=== PATIENT | male | born 1965 | race Caucasian/White ===

== ENCOUNTER 2020-07-12 12:29 | Outpatient (REF) | payer OTHER, SELFPAY ==
[2020-07-12 14:36] LABS: Estimated Average Glucose 97 mg/dL
[2020-07-12 15:06] LABS: Alanine Aminotransferase 15 U/L (0-40); Albumin Level 4.5 g/dL (3.5-5.0); Alkaline Phosphatase 61 U/L (39-117); Anion Gap 15 (12-20); Aspartate Amino Transferase 15 U/L (5-37); Bilirubin Total 1.2 mg/dL (0.0-1.0); Blood Urea Nitrogen 20 mg/dL (9-16); Calcium 8.8 mg/dL (8.4-10.2); Carbon Dioxide 23 mmol/L (22-29); Chloride 101 mmol/L (96-108); Cholesterol 320 mg/dL; Estimated Glomerular Filt Rate > 60; Glucose Fasting 82 mg/dL (60-99); HDL Cholesterol 65 mg/dL; LDL Cholesterol Calculated 245 mg/dl; Potassium 4.2 mmol/l (3.3-5.1); Sodium 135 mmol/L (135-145); Total Protein 7.1 g/dL (6.5-8.0); Triglycerides 54 mg/dL
[2020-07-12 15:15] LABS: Prostate Specific Antigen Scr 0.73 ng/mL (<0.05-4.0); Thyroid Stimulating Hormone 0.73 uIU/mL (0.32-4.0)
== END 2020-07-12 12:30 | disposition home or self-care (01) ==
LOC: HO.10HDL 12:29
PROVIDERS: Visit Provider Physician Assistant
DX: I10 Essential (primary) hypertension (principal); Z12.5 Encounter for screening for malignant neoplasm of prostate; Z79.899 Other long term (current) drug therapy
CPT/HCPCS: 36415; 80053; 80061; 83036; 84153; 84443

== ENCOUNTER 2020-11-22 11:24 | Outpatient (REF) | payer OTHER, SELFPAY ==
[2020-11-22 13:54] LABS: Cholesterol 251 mg/dL; HDL Cholesterol 70 mg/dL; LDL Cholesterol Calculated 173 mg/dl; Triglycerides 43 mg/dL
== END 2020-11-22 11:25 | disposition home or self-care (01) ==
LOC: HO.10HDL 11:24
PROVIDERS: Visit Provider Physician Assistant
DX: E78.2 Mixed hyperlipidemia (principal)
CPT/HCPCS: 36415; 80061

== ENCOUNTER 2021-05-23 09:04 | Outpatient (REF) | payer OTHER, SELFPAY ==
[2021-05-23 10:23] LABS: Hematocrit 39.8 % (42.0-52.0); Hemoglobin 13.3 g/dl (14.0-18.0); Mean Corpuscular HGB Conc 33.4 g/dl (31.0-36.0); Mean Corpuscular Hemoglobin 29.8 pg (27.0-33.0); Platelet Count 169 X10*3/uL (160-400); Red Blood Count 4.47 X10*6/uL (4.60-5.80); Red Cell Distribution Width 13.2 % (11.0-16.0)
[2021-05-23 10:49] LABS: Alanine Aminotransferase 15 U/L (0-40); Albumin Level 4.1 g/dL (3.5-5.0); Alkaline Phosphatase 66 U/L (39-117); Anion Gap 10 (12-20); Aspartate Amino Transferase 14 U/L (5-37); Bilirubin Total 1.1 mg/dL (0.0-1.0); Blood Urea Nitrogen 23 mg/dL (9-16); Calcium 9.2 mg/dL (8.4-10.2); Carbon Dioxide 25 mmol/L (22-29); Chloride 105 mmol/L (96-108); Cholesterol 265 mg/dL; Estimated Glomerular Filt Rate > 60; Glucose Fasting 85 mg/dL (60-99); HDL Cholesterol 64 mg/dL; LDL Cholesterol Calculated 191 mg/dl; Potassium 4.2 mmol/L (3.3-5.1); Sodium 136 mmol/L (135-145); Total Protein 6.4 g/dL (6.5-8.0); Triglycerides 52 mg/dL
[2021-05-23 11:12] LABS: Prostate Specific Antigen Scr 0.78 ng/mL (<0.05-4.0)
== END 2021-05-23 09:05 | disposition home or self-care (01) ==
LOC: HO.10HDL 09:04
PROVIDERS: Visit Provider Physician Assistant
DX: Z12.5 Encounter for screening for malignant neoplasm of prostate (principal); E78.2 Mixed hyperlipidemia; I10 Essential (primary) hypertension
CPT/HCPCS: 36415; 80053; 80061; 84153; 85027

== ENCOUNTER 2021-11-22 11:23 | Outpatient (REF) | payer OTHER, SELFPAY ==
[2021-11-22 13:07] LABS: Hematocrit 42.8 % (42.0-52.0); Hemoglobin 14.1 g/dl (14.0-18.0); Mean Corpuscular HGB Conc 32.9 g/dl (31.0-36.0); Mean Corpuscular Hemoglobin 28.5 pg (27.0-33.0); Mean Corpuscular Volume 86.6 fL (80.0-98.0); Mean Platelet Volume 9.1 fL (9.4-12.4); Platelet Count 152 X10*3/uL (160-400); Red Blood Count 4.94 X10*6/uL (4.60-5.80); Red Cell Distribution Width 14.5 % (11.0-16.0); White Blood Count 4.3 X10*3/uL (4.8-10.8)
[2021-11-22 13:18] LABS: Estimated Average Glucose 105 mg/dL; Hemoglobin A1c % 5.3 %
[2021-11-22 13:25] LABS: Alanine Aminotransferase 18 U/L (0-40); Albumin Level 4.2 g/dL (3.5-5.0); Alkaline Phosphatase 81 U/L (39-117); Anion Gap 12 (12-20); Aspartate Amino Transferase 17 U/L (5-37); Bilirubin Total 0.7 mg/dL (0.0-1.0); Blood Urea Nitrogen 20 mg/dL (9-16); Carbon Dioxide 25 mmol/L (22-29); Chloride 102 mmol/L (96-108); Cholesterol 268 mg/dL; Estimated Glomerular Filt Rate > 60; Glucose Fasting 94 mg/dL (60-99); HDL Cholesterol 61 mg/dL; LDL Cholesterol Calculated 193 mg/dl; Potassium 4.7 mmol/L (3.3-5.1); Sodium 134 mmol/L (135-145); Total Protein 7.1 g/dL (6.5-8.0); Triglycerides 71 mg/dL
[2021-11-22 13:46] LABS: Prostate Specific Antigen Scr 1.18 ng/mL (<0.05-4.0); TSH reflex Free T4 2.37 uIU/mL (0.32-4.0)
[2021-11-22 14:54] LABS: Creatinine Urine 96.58 mg/dL; Microalbum/Creatinine Ratio Ur 7.2 ug/mg cr
== END 2021-11-22 11:24 | disposition home or self-care (01) ==
LOC: HO.10HDL 11:23
PROVIDERS: Visit Provider Physician Assistant
DX: I10 Essential (primary) hypertension (principal); E78.2 Mixed hyperlipidemia; Z12.5 Encounter for screening for malignant neoplasm of prostate
CPT/HCPCS: 36415; 80053; 80061; 82043; 83036; 84153; 84443; 85027

== ENCOUNTER 2022-08-11 14:56 | Outpatient (REF) | payer OTHER, SELFPAY ==
[2022-08-11 15:23] LABS: MANUAL DIFF FLAG NO
[2022-08-11 15:25] LABS: Basophils Absolute Auto 0.1 X10*3/uL (0.0-0.2); Basophils Percent Auto 0.6 % (0-2); Eosinophils Absolute Auto 0.2 X10*3/uL (0.0-0.4); Eosinophils Percent Auto 1.5 % (0-4); Hematocrit 40.5 % (42.0-52.0); Hemoglobin 13.6 g/dl (14.0-18.0); Imm Gran Abs Auto 0.41 X10*3/uL (0.00-0.03); Imm Gran Pct Auto 4.2 % (0.0-0.4); Lymphocytes Absolute Auto 1.5 X10*3/uL (1.2-4.9); Lymphocytes Percent Auto 15.5 % (20-40); Mean Corpuscular HGB Conc 33.6 g/dl (31.0-36.0); Mean Corpuscular Hemoglobin 28.8 pg (27.0-33.0); Mean Corpuscular Volume 85.8 fL (80.0-98.0); Mean Platelet Volume 8.4 fL (9.4-12.4); Monocytes Absolute Auto 0.9 X10*3/uL (0.1-1.2); Monocytes Percent Auto 9.2 % (2-11); Neutrophils Absolute Auto 6.8 x10*3/uL (2.0-8.3); Platelet Count 238 X10*3/uL (160-400); Red Blood Count 4.72 X10*6/uL (4.60-5.80); Red Cell Distribution Width 13.9 % (11.0-16.0); White Blood Count 9.9 X10*3/uL (4.8-10.8)
[2022-08-11 15:54] LABS: Alanine Aminotransferase 23 U/L (0-40); Albumin Level 3.8 g/dL (3.5-5.0); Alkaline Phosphatase 72 U/L (39-117); Anion Gap 14 (12-20); Aspartate Amino Transferase 18 U/L (5-37); Bilirubin Total 0.9 mg/dL (0.0-1.0); Blood Urea Nitrogen 25 mg/dL (9-16); Calcium 8.7 mg/dL (8.4-10.2); Carbon Dioxide 23 mmol/L (22-29); Chloride 107 mmol/L (96-108); Estimated Glomerular Filt Rate > 60; Glucose Random 108 mg/dL (60-115); Lipase 17 U/L (8-78); Potassium 4.4 mmol/L (3.3-5.1); Sodium 140 mmol/L (135-145); Total Protein 6.1 g/dL (6.5-8.0)
== END 2022-08-11 14:57 | disposition home or self-care (01) ==
LOC: HO.HMGCLDS 14:56
PROVIDERS: PCP Physician Assistant; Visit Provider Physician Assistant Medical
DX: R19.7 Diarrhea, unspecified (principal)
CPT/HCPCS: 36415; 80053; 83690; 85025

== ENCOUNTER 2022-10-15 11:40 | Outpatient (REF) | payer OTHER, SELFPAY ==
[2022-10-15 14:35] LABS: Hematocrit 44.6 % (42.0-52.0); Hemoglobin 14.7 g/dl (14.0-18.0); Mean Corpuscular Hemoglobin 29.1 pg (27.0-33.0); Mean Corpuscular Volume 88.1 fL (80.0-98.0); Mean Platelet Volume 9.1 fL (9.4-12.4); Platelet Count 224 X10*3/uL (160-400); Red Blood Count 5.06 X10*6/uL (4.60-5.80); White Blood Count 6.4 X10*3/uL (4.8-10.8)
[2022-10-15 14:39] LABS: Alanine Aminotransferase 19 U/L (0-40); Albumin Level 4.2 g/dL (3.5-5.0); Alkaline Phosphatase 69 U/L (39-117); Anion Gap 10 (12-20); Aspartate Amino Transferase 15 U/L (5-37); Bilirubin Total 0.6 mg/dL (0.0-1.0); Blood Urea Nitrogen 22 mg/dL (9-16); Calcium 8.8 mg/dL (8.4-10.2); Carbon Dioxide 25 mmol/L (22-29); Chloride 109 mmol/L (96-108); Cholesterol 285 mg/dL; Estimated Glomerular Filt Rate > 60; Glucose Fasting 90 mg/dL (60-99); HDL Cholesterol 66 mg/dL; LDL Cholesterol Calculated 210 mg/dl; Potassium 4.4 mmol/L (3.3-5.1); Sodium 140 mmol/L (135-145); Total Protein 6.4 g/dL (6.5-8.0); Triglycerides 47 mg/dL
== END 2022-10-15 11:41 | disposition home or self-care (01) ==
LOC: HO.10HDL 11:40
PROVIDERS: Visit Provider Physician Assistant
DX: I10 Essential (primary) hypertension (principal); E78.2 Mixed hyperlipidemia
CPT/HCPCS: 36415; 80053; 80061; 85027

== ENCOUNTER 2023-04-15 11:58 | Outpatient (REF) | payer OTHER, SELFPAY ==
[2023-04-15 13:15] LABS: Hematocrit 40.9 % (42.0-52.0); Hemoglobin 14.1 g/dl (14.0-18.0); Mean Corpuscular HGB Conc 34.5 g/dl (31.0-36.0); Mean Corpuscular Hemoglobin 30.1 pg (27.0-33.0); Mean Corpuscular Volume 87.4 fL (80.0-98.0); Mean Platelet Volume 8.8 fL (9.4-12.4); Platelet Count 200 X10*3/uL (160-400); Red Blood Count 4.68 X10*6/uL (4.60-5.80); Red Cell Distribution Width 13.4 % (11.0-16.0)
[2023-04-15 13:30] LABS: Alanine Aminotransferase 20 U/L (0-40); Albumin Level 4.2 g/dL (3.5-5.0); Alkaline Phosphatase 75 U/L (39-117); Anion Gap 14 (12-20); Aspartate Amino Transferase 19 U/L (5-37); Bilirubin Total 0.9 mg/dL (0.0-1.0); Blood Urea Nitrogen 7 mg/dL (9-16); Calcium 9.4 mg/dL (8.4-10.2); Carbon Dioxide 25 mmol/L (22-29); Chloride 102 mmol/L (96-108); Cholesterol 248 mg/dL (<200); Estimated Glomerular Filt Rate > 60; Glucose Fasting 90 mg/dL (60-99); HDL Cholesterol 56 mg/dL (>40); LDL Cholesterol Calculated 179 mg/dL (<100); Potassium 4.6 mmol/L (3.3-5.1); Sodium 136 mmol/L (135-145); Total Protein 6.9 g/dL (6.5-8.0); Triglycerides 67 mg/dL (<150)
[2023-04-15 13:52] LABS: Prostate Specific Antigen Scr 1.14 ng/mL (<0.05-4.0)
== END 2023-04-15 11:59 | disposition home or self-care (01) ==
LOC: HO.10HDL 11:58
PROVIDERS: Visit Provider Physician Assistant
DX: Z12.5 Encounter for screening for malignant neoplasm of prostate (principal); I10 Essential (primary) hypertension; E78.2 Mixed hyperlipidemia
CPT/HCPCS: 36415; 80053; 80061; 84153; 85027

== ENCOUNTER 2023-04-17 10:08 | Outpatient (AMB) | payer OTHER, SELFPAY ==
[2023-04-17 10:10] VITALS: BP 160/104; PULSE 80; O2SAT 99; BMI 24.8
--- NOTE | 2023-04-17 10:10 | A.OFFPC_ITS ---
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 Accompanied by: Self / Same As Patient Allergies bee stings Allergy (Unknown, Uncoded 04/17/23 10:19) Unknown Medication List - Last Reconciled 04/17/23 by Jair Hammond PA-C bupropion HCl (Wellbutrin XL) 150 mg PO QAM diphenoxylate-atropine 2.5-0.025 mg (Lomotil) 1 tab PO TID PRN ibuprofen 800 mg PO Q8H 7 days lisinopril 5 mg (1/2 x 10 mg) PO DAILY Tobacco use date assessed: 10/16/22 Dental Screening Dental Screen Date: 04/17/23 Did you have a dental visit in the last 12 months?: No Did you have a dental problem in the last 6 months where you did not have access to dental care?: No Was dental information given to patient?: Patient has dentist HPI f/u HLD 2 HPI0 Details Tom is a 57-year-old male? here today for follow-up visit . Patient has past medical history of hypertension, anxiety, HLD. Concerns--> report having a small pain in his lower back when he moves over the last 4 months. He is interested in getting x-ray of his back ?? Hyperlipidemia:? Most recent lipid panel has improved from previous though still elevated. He does report having family members with elevated cholesterol. PLAN :? Advised on starting low-dose statin though patient declines, ?Will continue to monitor lipid panel continues to be elevated with continue lifestyle management. ? . ? .. ? HTN:? Blood pressure elevated today in office. Reports that home blood pressures have been stable. ? does not regularly monitor his blood pressure,? denies any headaches chest pain, shortness of breath, dizziness. Blood pressure today acceptable. ? .. ? Anxiety:? Continues with the use of Wellbutrin for his anxiety. Continues to follow with psychiatrist Laboratory Tests 10/15/22 10/15/22 04/15/23 11:42 11:42 12:05 RBC 4.68 Creatinine 0.76 Cholesterol 285 248 H LDL Cholesterol, C alc 210 PSA Screen 04/15/23 04/15/23 12:05 12:05 RBC Creatinine Cholesterol LDL Cholesterol, C alc 179 H PSA Screen 1.14 PFSH Surgical History History of vascular surgery History of nasal surgery Family History Father Hypertension Hyperlipidemia Colon cancer Mother Hypertension Hyperlipidemia Diabetes Maternal Grandmother CAD (coronary artery disease) Social History Housing: House Alcohol intake: former Patient Tobacco Use Status: Former Tobacco user e-Cigarette/Vaping Use: Never Used Second Hand Smoke Exposure: No service: No Current occupational status: employed 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 Tom Osorio, Farida Estes, Chris Bain and colleagues, with an educational cesar from [employer] Review of Systems Const Denies headache(s) Eyes Denies loss of vision ENT Denies vertigo, Denies dizziness, Denies headache(s) and Denies sore throat Card Denies chest pain, Denies leg edema and Denies lightheadedness Resp Denies cough, Denies hemoptysis and Denies wheezing GI Denies abdominal pain, Denies melena, Denies constipation, Denies diarrhea and Denies vomiting Denies dysuria, Denies urinary frequency and Denies urinary urgency Musc Denies arthralgias, Denies joint swelling, Denies numbness and Denies tingling Neuro Denies Abnormal speech present, Denies behavioral changes, Denies vertigo, Denies dizziness, Denies headache(s), Denies loss of vision, Denies memory loss, Denies numbness and Denies tingling Psych Denies anxiety, Denies behavioral changes, Denies depression, Denies memory loss and Denies panic attacks Castillo/Lymph Denies easy bleeding and Denies easy bruising Aller/Immun Denies wheezing Physical exam (Primary Care) Vital Signs: Last Vital Signs Pulse 80 04/17/23 10:10 BP 160/104 H 04/17/23 10:10 Pulse Ox 99 04/17/23 10:10 Oxygen Delivery Method Room Air 04/17/23 10:10 BMI result Body Mass Index 24.8 Tobacco/Smoking Status: Tobacco use Status Tobacco use date assessed 10/16/22 04/17/23 10:13 Patient Tobacco Use Status Former Tobacco user 04/17/23 10:13 e-Cigarette/Vaping Use Never Used 04/17/23 10:13 Thrive Assessment: Date of Thrive Assessment Date Thrive assessed 10/16/22 04/17/23 10:13 Const General: healthy appearing, no acute distress, alert and awake Nutritional Appearance: well nourished Orientation/consciousness: oriented to person, oriented to place and oriented to time HENMT Ears: TM's normal bilaterally General nose exam: Normal nasal mucous membranes and turbinates present Eyes Conjunctivae: conjunctivae normal Sclerae: sclerae normal Pupils: Equal, round and reactive pupils present Eyes/upper lids images: 2 1. NOTED STYE OVER RIGHT LOWER EYELID Neck Neck: Yes no lymphadenopathy and Yes no JVD Thyroid: Thyroid normal Carotids: no bruits Resp Effort & Inspection: normal respiratory effort and not tachypneic Auscultation: no crackles, no rales, no rhonchi and no wheezes Cardio Rate: regular rate Rhythm: regular rhythm Heart sounds: no murmurs and normal S1 and S2 GI Palpation (GI): Soft to palpation, nontender, no hepatomegaly and no splenomegaly Auscultation: normal bowel sounds Skin General skin exam: no rashes or lesions noted and dry skin Neuro General: oriented to person, oriented to place and oriented to time Cranial nerves: Yes Equal, round and reactive pupils present Speech: No Abnormal speech present Gait exam (Neuro): Normal gait present Motor exam (neuro): no tremor noted Extrem Right upper extremity: full ROM Left upper extremity: full ROM Right lower extremity: full ROM; no edema Left lower extremity: full ROM; no edema Psych Mental Status: mental status grossly normal Speech and movement: Normal speech and movement present Affect: normal affect Attitude: cooperative Thought process: Normal thought process present Assessment and Plan Assessment & Plan (1) HLD (hyperlipidemia): Code(s): E78.5 - Hyperlipidemia, unspecified Qualifiers: Hyperlipidemia type: mixed hyperlipidemia Qualified Code(s): E78.2 - Mixed hyperlipidemia Plan: Patient's fasting lipid panel remains showing elevated total cholesterol and LDL though improved from previous. Has been making lifestyle changes in his diet. He is still not interested in starting cholesterol medication at this time. Will continue to follow fasting lipid panel (2) HTN (hypertension): Code(s): I10 - Essential (primary) hypertension Qualifiers: Hypertension type: essential hypertension Qualified Code(s): I10 - Essential (primary) hypertension Plan: Patient's blood pressure elevated today in office.. Will continue current dose of lisinopril 5mg with goal blood pressure to be below 140/90. He reports that home blood pressures have been stable. He will continue to monitor blood pressures and if remains elevated above 140/90 will consider increasing his dose of lisinopril. (3) KYAW (generalized anxiety disorder): Code(s): F41.1 - Generalized anxiety disorder Plan: Patient reports his anxiety is well controlled with current dose of Wellbutrin. He does speak with a mental health therapist (4) Low back pain: Code(s): M54.50 - Low back pain, unspecified Qualifiers: Back pain laterality: bilateral Chronicity: chronic Sciatica presence: without sciatica Qualified Code(s): M54.50 - Low back pain, unspecified; G89.29 - Other chronic pain Plan: Reports having intermittent lower back pain. He would like an x-ray to evaluate. Will likely benefit from physical therapy though patient is still considering. (5) Hordeolum of lower eyelid: Code(s): H00.019 - Hordeolum externum unspecified eye, unspecified eyelid Plan: Noticed I over right lower eyelid.' Will supply with erythromycin eye oint. Orders: Orders 2 Lipid Panel 04/17/23 E78.2 - Mixed hyperlipidemia XR lumbar spine 2-3V 04/17/23 G89.29 - Other chronic pain, M54.50 - Low back pain, unspecified Comprehensive [place]. Panel Fast 04/17/23 E78.2 - Mixed hyperlipidemia Microalbumin, Random (w Creat) 04/17/23 I10 - Essential (primary) hypertension Medications: New 2 erythromycin 1 appl ophthalmic-Right DAILY 14 days 3.5 grams 0RF H00.019 - Hordeolum externum unspecified eye, unspecified eyelid Coding Level of Care Code Est Pt Level 4 (94290) Diagnoses Mixed hyperlipidemia E78.2 Hyperlipidemia type: mixed hyperlipidemia Essential hypertension I10 Hypertension type: essential hypertension KYAW (generalized anxiety disorder) F41.1 Chronic bilateral low back pain without sciatica M54.50; G89.29 Back pain laterality: bilateral Chronicity: chronic Sciatica presence: without sciatica Hordeolum of lower eyelid H00.019
== END 2023-04-17 10:45 | disposition home or self-care (01) ==
PROVIDERS: Visit Provider Physician Assistant
DX: E78.2 Mixed hyperlipidemia (principal); I10 Essential (primary) hypertension; F41.1 Generalized anxiety disorder; M54.50 Low back pain, unspecified; G89.29 Other chronic pain; H00.019 Hordeolum externum unspecified eye, unspecified eyelid
CPT/HCPCS: 99214

== ENCOUNTER 2023-12-23 11:34 | Outpatient (REF) | payer OTHER, SELFPAY ==
[2023-12-23 13:03] LABS: Microalbumin Urine < 5.0 mg/L
[2023-12-23 13:05] LABS: Alanine Aminotransferase 13 U/L (0-40); Albumin Level 4.2 g/dL (3.5-5.0); Alkaline Phosphatase 58 U/L (39-117); Anion Gap 12 (12-20); Aspartate Amino Transferase 14 U/L (5-37); Bilirubin Total 0.7 mg/dL (0.0-1.0); Blood Urea Nitrogen 13 mg/dL (9-16); Calcium 9.1 mg/dL (8.4-10.2); Carbon Dioxide 25 mmol/L (22-29); Chloride 102 mmol/L (96-108); Cholesterol 199 mg/dL (<200); Estimated Glomerular Filt Rate > 60; Glucose Fasting 92 mg/dL (60-99); HDL Cholesterol 52 mg/dL (>40); LDL Cholesterol Calculated 134 mg/dL (<100); Sodium 135 mmol/L (135-145); Total Protein 6.9 g/dL (6.5-8.0); Triglycerides 65 mg/dL (<150)
== END 2023-12-23 11:35 | disposition home or self-care (01) ==
LOC: HO.LAB 11:34
PROVIDERS: PCP Physician Assistant; Visit Provider Physician Assistant
DX: E78.2 Mixed hyperlipidemia (principal); I10 Essential (primary) hypertension
CPT/HCPCS: 36415; 80053; 80061; 82043; 82570

== ENCOUNTER 2023-12-23 14:45 | Outpatient (AMB) | payer OTHER, SELFPAY ==
[2023-12-23 15:12] VITALS: BP 144/100; PULSE 86; O2SAT 97; BMI 24.9
--- NOTE | 2023-12-23 15:12 | MHC.PC.OV ---
Vital Signs 12/23/23 15:12 Height 5 ft 8 in Weight 164 lb BMI 24.9 BP 144/100 H Blood Pressure Location Lt brachial Position Sitting Pulse 86 Pulse Source Pulse Oximeter Pulse Oximetry (%) 97 Oxygen Delivery Method Room Air Intake Visit Reasons: annual physical Intake Note: Patient is here today for a physical. 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 here today for follow-up visit . Patient has past medical history of hypertension, anxiety, HLD. ?? Hyperlipidemia:? Most recent lipid panel has significantly improved He does report having family members with elevated cholesterol. Plan: Continue with lifestyle and dietary modifications ? . ? .. ? HTN:? Blood pressure elevated today in office. Reports that home blood pressures have been stable 120s to 130 systolic. ?He denies any headaches chest pain, shortness of breath, dizziness. Blood pressure today acceptable. ? .. ? Anxiety:? Continues with the use of Wellbutrin for his anxiety. Continues to follow with psychiatrist Colonoscopy:? Done in 2016 needs repeat 5 years ( 2021)- does have family history of colon cancer needed repeat colonoscopy vaccine: UTD with COVID Vaccine and TDap, considering shingles Laboratory Tests 04/15/23 12/23/23 12:05 11:59 Cholesterol 248 H 199 LDL Cholesterol, C alc 179 H 134 H PFSH Surgical History History of vascular surgery History of nasal surgery Family History Father Hypertension Hyperlipidemia Colon cancer Mother Hypertension Hyperlipidemia Diabetes Maternal Grandmother CAD (coronary artery disease) Social History Housing: House Alcohol intake: former Patient Tobacco Use Status: Former Tobacco user e-Cigarette/Vaping Use: Never Used Second Hand Smoke Exposure: No service: No Current occupational status: employed 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 1. Little interest or pleasure in doing things: not at all 2. Feeling down, depressed, or hopeless: not at all 3. Trouble falling or staying asleep, or sleeping too much: not at all 4. Feeling tired or having little energy: not at all 5. Poor appetite or overeating: not at all 6. Feeling bad about yourself - or that you are a failure or have let yourself or your family down: not at all 7. Trouble concentrating on things, such as reading the newspaper or watching television: not at all 8. Moving or speaking so slowly that other people could have noticed. Or the opposite - being so fidgety or restless that you have been moving around a lot more than usual: not at all 9. Thoughts that you would be better off or of hurting yourself in some way: not at all Total score: 0 Depression Screening Interpretation: Negative Depression Screening Done: Yes 09960 - PHQ-9 Billing: Yes Source: Developed by Drs. Tom Osorio, Farida Estes, Chris Bain and colleagues, with an educational cesar from [employer]. Thrive Questionnaire Date Thrive assessed: 10/16/22 KYAW-7 AMB Questionnaire KYAW-7 Date KYAW - 7 assessed: 10/16/22 Feeling nervous, anxious, or on edge: 0 = Not at all Not being able to stop or control worryin = Not at all Worrying too much about different things: 0 = Not at all Trouble relaxin = Not at all Being so restless that it is hard to sit still: 0 = Not at all Becoming easily annoyed or irritable: 0 = Not at all Feeling afraid as if something awful might happen: 0 = Not at all Total KYAW-7 score (0-4 normal; 5-9 mild; 10-14 moderate; 15-21 severe): 0 Source: Developed by Drs. oTm Osorio, Farida Estes, Chris Bain and colleagues, with an educational cesar from [employer]. KYAW-7 Assessment Billing KYAW-7 Assessment Tool: KYAW-7 Assessment 82116 Review of Systems Const Denies body aches, Denies chills, Denies excessive sweating, Denies fatigue, Denies fever(s) and Denies headache(s) Eyes Denies blurry vision ENT Denies dysphagia, Denies vertigo, Denies dizziness, Denies headache(s), Denies hearing loss and Denies tinnitus Card Denies chest pain, Denies chest pain with activity, Denies syncope, Denies irregular heart rhythm and Denies dyspnea Resp Denies chest congestion, Denies cough, Denies hemoptysis, Denies dyspnea and Denies wheezing GI Denies abdominal pain, Denies melena, Denies hematochezia, Denies coffee ground emesis, Denies dysphagia, Denies diarrhea, Denies nausea and Denies vomiting Denies difficulty urinating, Denies dysuria, Denies urinary frequency, Denies urinary hesitancy and Denies urinary urgency Musc Denies arthralgias, Denies limited range of motion, Denies muscle cramps and Denies muscle weakness Skin/Breast Denies rash and Denies skin ulcer Neuro Denies Abnormal speech present, Denies confusion, Denies vertigo, Denies dizziness, Denies syncope, Denies headache(s), Denies memory loss and Denies seizure-like activity Psych Denies anxiety, Denies confusion, Denies depression, Denies memory loss, Denies panic attacks and Denies paranoia Endo Denies excessive sweating, Denies fatigue, Denies flushing, Denies polydipsia and Denies polyuria Aller/Immun Denies wheezing Physical exam (Primary Care) Vital Signs: Last Vital Signs Pulse 86 12/23/23 15:12 BP 144/100 H 12/23/23 15:12 Pulse Ox 97 12/23/23 15:12 Oxygen Delivery Method Room Air 12/23/23 15:12 BMI result Body Mass Index 24.9 Tobacco/Smoking Status: Tobacco use Status Tobacco use date assessed 12/23/23 12/23/23 15:18 Patient Tobacco Use Status Former Tobacco user 12/23/23 15:18 e-Cigarette/Vaping Use Never Used 12/23/23 15:18 PHQ-9: PHQ-9 Score PHQ-9: Total score 0 12/23/23 15:57 Depression Screening Interpretation: Negative Thrive Assessment: Date of Thrive Assessment Date Thrive assessed 10/16/22 12/23/23 15:18 Const General: cooperative, comfortable, no acute distress, alert and awake; No confusion Orientation/consciousness: oriented to person, oriented to place, patient oriented x3 and No confusion HENMT Head: Yes normocephalic Ears: external ears normal and TM's normal bilaterally Face and sinus: No sinus tenderness Mouth: Normal oral and palatal mucosa present and tongue normal Teeth and gingiva: dentition normal and gingiva normal Throat: Yes posterior oropharynx normal, Yes tonsils normal and Yes uvula midline Eyes Conjunctivae: conjunctivae normal Sclerae: sclerae normal Pupils: Equal, round and reactive pupils present EOM: EOMs intact bilaterally Direct Ophthalmoscopy: No no photophobia Neck Neck: Yes no lymphadenopathy, No tender and Yes no JVD Thyroid: Thyroid normal Carotids: no bruits Chest Chest palpation & inspection: no tenderness Resp Effort & Inspection: normal respiratory effort, no audible wheezes, not labored and no stridor Auscultation: no crackles, no rales, no rhonchi and no wheezes Cardio Jugular venous distension: no JVD Rate: regular rate, not bradycardic and not tachycardic Rhythm: regular rhythm Bruits: no carotid bruits Peripheral pulses: Peripheral pulses 2+ throughout GI Inspection: Yes normal to inspection, No abdominal wall ecchymosis and No visible herniation Palpation (GI): Soft to palpation, nontender, no guarding, not rigid and No hepatosplenomegaly present Auscultation: normoactive bowel sounds General: Yes no CVA tenderness Back/Spine/Pelvis Back: no CVA tenderness and No back tenderness Cervical Spine: cervical ROM normal Thoracic/Lumbar Spine: thoracic and lumbar spine normal to inspection, straight leg raise negative bilaterally, No thoraco-lumbar ROM limited and No lumbar spinal tenderness Skin Lesions: no lesions Rashes: no rashes Wounds: no wounds Neuro General: oriented to person, oriented to place, patient oriented x3, CN's II-XI intact bilaterally and No confusion Cranial nerves: Yes Equal, round and reactive pupils present and Yes Normal accommodation reflex present Cognition (Neuro): normal cognition Speech: No Abnormal speech present Gait exam (Neuro): Normal gait present Motor exam (neuro): 5/5 motor strength present throughout Extrem Right upper extremity: full ROM; no cyanosis Left upper extremity: full ROM; no cyanosis Right lower extremity: no edema Left lower extremity: no edema Psych Appearance: grossly normal Mental Status: mental status grossly normal Affect: normal affect Attitude: cooperative Thought process: Normal thought process present Assessment and Plan Assessment & Plan (1) Annual physical exam: Code(s): Z00.00 - Encounter for general adult medical examination without abnormal findings (2) HLD (hyperlipidemia): Code(s): E78.5 - Hyperlipidemia, unspecified Qualifiers: Hyperlipidemia type: mixed hyperlipidemia Qualified Code(s): E78.2 - Mixed hyperlipidemia Plan: Patient's fasting lipid panel remains showing much improved total cholesterol and LDL. Has been making lifestyle changes in his diet. He is still not interested in starting cholesterol medication at this time. Will continue to follow fasting lipid panel (3) HTN (hypertension): Code(s): I10 - Essential (primary) hypertension Qualifiers: Hypertension type: essential hypertension Qualified Code(s): I10 - Essential (primary) hypertension Plan: Patient's blood pressure elevated today in office.. He reports he has been monitoring his blood pressure at home and reports 120s to 130 systolic. Continues on a low-dose lisinopril. He will continue to monitor blood pressures and if remains elevated above 140/90 will consider increasing dose of lisinopril. (4) KYAW (generalized anxiety disorder): Code(s): F41.1 - Generalized anxiety disorder Plan: Patient reports his anxiety is well controlled with current dose of Wellbutrin. He does speak with a mental health therapist (5) Family history of colon cancer in father: Code(s): Z80.0 - Family history of malignant neoplasm of digestive organs Plan: Has a family history of colon cancer. Did have polyp on colonoscopy in 2017 -needed repeat colonoscopy Orders: Orders Complete Blood Count no Diff 12/23/23 I10 - Essential (primary) hypertension Prostate Specific Antigen Scr 12/23/23 I10 - Essential (primary) hypertension, Z12.5 - Encounter for screening for malignant neoplasm of prostate Lipid Panel 12/23/23 E78.2 - Mixed hyperlipidemia Comprehensive [place]. Panel Fast 12/23/23 I10 - Essential (primary) hypertension Referrals Gastroenterology Referral Z80.0 - Family history of malignant neoplasm of digestive organs Medications: Changed From lisinopril 5 mg (1/2 x 10 mg) PO DAILY 15 tabs 0RF I10 - Essential (primary) hypertension To lisinopril 5 mg (1/2 x 10 mg) PO DAILY 45 tabs 1RF 90 days I10 - Essential (primary) hypertension Patient Instructions: Goal: Blood pressure to be below 140/90 at home Barrier: Adherence to physical activity and healthy eating habits Coding Level of Care Code Est Pt Prev Care 40-64y(09662) Diagnoses Annual physical exam Z00.00 Mixed hyperlipidemia E78.2 Hyperlipidemia type: mixed hyperlipidemia Essential hypertension I10 Hypertension type: essential hypertension KYAW (generalized anxiety disorder) F41.1 Family history of colon cancer in father Z80.0 Additional Codes KYAW-7 Assessment Billing - KYAW-7 Assessment Tool: KYAW-7 Assessment 60103 ([id number])
== END 2023-12-23 16:17 | disposition home or self-care (01) ==
PROVIDERS: PCP Physician Assistant; Visit Provider Physician Assistant
DX: Z00.00 Encounter for general adult medical examination without abnormal findings (principal); E78.2 Mixed hyperlipidemia; I10 Essential (primary) hypertension; F41.1 Generalized anxiety disorder; Z80.0 Family history of malignant neoplasm of digestive organs
CPT/HCPCS: 99396

== ENCOUNTER 2024-06-29 11:33 | Outpatient (REF) | payer OTHER, SELFPAY ==
[2024-06-29 13:09] LABS: Hematocrit 43.2 % (42.0-52.0); Hemoglobin 14.5 g/dl (14.0-18.0); Mean Corpuscular HGB Conc 33.6 g/dl (31.0-36.0); Mean Corpuscular Hemoglobin 29.8 pg (27.0-33.0); Mean Corpuscular Volume 88.9 fL (80.0-98.0); Mean Platelet Volume 8.5 fL (9.4-12.4); Platelet Count 229 X10*3/uL (160-400); Red Blood Count 4.86 X10*6/uL (4.60-5.80); White Blood Count 5.9 X10*3/uL (4.8-10.8)
--- OUTSIDE RECORDS SUMMARY | 2024-06-29 13:20 | XMS_ITS ---
Author Organization [facility] Address [address] [place] [address] Care Team Providers Care Tennis Professional Name Role Phone Jair Hammond Primary Care Provider Unavailab Tom Schuler Unavailable [phone] REASON FOR VISIT rescheduled appt on 04/24/2024. Encounters Encounter Location Date Provider Diagnosis [facility] [address] [facility] [address] [place] [address] 04/20/2024 Tom Buckner PLAN OF TREATMENT Next Appt Details Provider Name:Tom Buckner , 07/31/2024 02:20:00 PM, [address], [address], [place], [address],
--- OUTSIDE RECORDS SUMMARY | 2024-06-29 13:20 | XMS_ITS ---
Author Organization [facility] Address [address] [place] [address] Care Team Providers Care Continuous Improvement Analyst Name Role Phone Jair Hammond Primary Care Provider Unavailab Tom Schuler Unavailable [phone] REASON FOR VISIT Patient presents today for a colon screening Encounters Encounter Location Date Provider Diagnosis [facility] [address] [place] [address] 04/24/2024 Tom Buckner PLAN OF TREATMENT Next Appt Details Provider Name:Tom Buckner , 07/31/2024 02:20:00 PM, [address], [address], [place], [address],
--- OUTSIDE RECORDS SUMMARY | 2024-06-29 13:20 | XMS_ITS | Patient Health Record ---
Author Organization [facility] Address [address] [place] [address] Care Team Providers Care Cfd Engineer Name Role Phone Jair Hammond Primary Care Provider Unavailab Lary Schuler Unavailable [phone] REASON FOR REFERRAL No Information MEDICATIONS Medication SIG (Take, Route, Fr equency, Duration) Notes Start Date End Date Status Lisinopril 10 MG 1 tablet Orally Once a day Active Wellbutrin XL 300 MG 1 tablet in the mor sravanthi Orally Once a day Active SOCIAL HISTORY Tobacco Use: Social History Observation Description Date Details (start date - stop date) Former Smoker NA - NA Sex Assigned At : Social History Observation Description Sex Assigned At Unknown Tobacco Use/Smoking Question Answer Notes Patient is a former smoker How long has it been since you last smoked? > 10 years Alcohol Screen Question Answer Notes Did you have a drink contain ing alcohol in the past year? Yes How often did you have a dri nk containing alcohol in the past year? 2 to 4 times a month (2 points) How many drinks did you have on a typical day when you were drinking in the past year? 1 or 2 drinks (0 point) How often did you have 6 or more drinks on one occasion in the past year? Never (0 point) Points 2 Interpretation Negative PROBLEMS Problem Type ICD Code Onset Dates Problem Status W/U Status Risk SNOMED Code Notes Problem Encounter for screening for malignant neoplasm of colon (Z12.11) Active confirmed 825244245 Problem Family history of colon cancer (Z80.0) Active confirmed 389352768 Problem Preprocedural examination (Z01.818) Active confirmed [id number] Encounters Encounter Location Date Provider Diagnosis [facility] [address] [place] [phone] 04/24/2024 Lary Buckner [facility] [address] [place] [address] 04/20/2024 Lary Buckner PLAN OF TREATMENT Future Test Test Name Order Date COLONOSCOPY 03/01/2017 Next Appt Details Provider Name:Lary Buckner , 07/31/2024 02:20:00 PM, [address], [address], [place], [address], Insurance Providers Payer Name Payer Address Payer Phone Subscriber Number Group Number Insured Name Patient Relationship to Insured Coverage Start Date Coverage End Date CIGNA [address] [place], [place] [address] [id number] LARY FARRIS Self - patient is the insured MEDICAL (GENERAL) HISTORY Medical History History ICD Code Hypertension Denies [place],DM,CVA,Lung disease,renal dise ase Depression Surgical History Surgery Date(Month/Year) Left knee arthroscopy 1990 Bilateral inguinal hernias as a child
[2024-06-29 13:35] LABS: Alanine Aminotransferase 43 U/L (0-40); Albumin Level 4.4 g/dL (3.5-5.0); Alkaline Phosphatase 84 U/L (39-117); Anion Gap 11 (12-20); Aspartate Amino Transferase 46 U/L (5-37); Bilirubin Total 0.8 mg/dL (0.0-1.0); Blood Urea Nitrogen 20 mg/dL (9-16); Calcium 9.1 mg/dL (8.4-10.2); Carbon Dioxide 25 mmol/L (22-29); Chloride 105 mmol/L (96-108); Cholesterol 190 mg/dL (<200); Estimated Glomerular Filt Rate > 60; Glucose Fasting 95 mg/dL (60-99); HDL Cholesterol 56 mg/dL (>40); LDL Cholesterol Calculated 121 mg/dL (<100); Potassium 4.3 mmol/L (3.3-5.1); Sodium 137 mmol/L (135-145); Total Protein 7.1 g/dL (6.5-8.0); Triglycerides 67 mg/dL (<150)
== END 2024-06-29 11:34 | disposition home or self-care (01) ==
LOC: HO.10HDL 11:33
PROVIDERS: Visit Provider Physician Assistant
DX: Z12.5 Encounter for screening for malignant neoplasm of prostate (principal); I10 Essential (primary) hypertension; E78.2 Mixed hyperlipidemia; R74.8 Abnormal levels of other serum enzymes
CPT/HCPCS: 36415; 80053; 80061; 84153; 85027; 96127

== ENCOUNTER 2024-06-29 14:49 | Outpatient (AMB) | payer OTHER, SELFPAY ==
--- NOTE | 2024-06-29 14:55 | MHC.PC.OV ---
Vital Signs 06/29/24 15:06 Height 5 ft 8 in Weight 159 lb BMI 24.2 BP 128/72 Blood Pressure Location Lt brachial Position Sitting Pulse 76 Pulse Source Pulse Oximeter Pulse Oximetry (%) 98 Oxygen Delivery Method Room Air Intake Visit Reasons: f/u HLD/ HTN Optical Brightener Maker Helper Required: No Accompanied by: Self / Same As Patient Allergies bee stings Allergy (Unknown, Uncoded 06/29/24 15:12) Unknown Medication List - Last Reconciled 06/29/24 by Jair Hammond PA-C bupropion HCl XL (Wellbutrin XL) 150 mg PO QAM lisinopril 5 mg (1/2 x 10 mg) PO DAILY 90 days Tobacco use date assessed: 06/29/24 Dental Screening Dental Screen Date: 06/29/24 Did you have a dental visit in the last 12 months?: Yes Did you have a dental problem in the last 6 months where you did not have access to dental care?: No Was dental information given to patient?: Patient has dentist HPI f/u HLD/ HTN HPI Details Tom is a 58-year-old male? here today for follow-up visit . Patient has past medical history of hypertension, anxiety, HLD. Elevated liver enzyme--> The patient's liver enzymes, as indicated in recent labs, have shown slight elevation with AST at 46 and ALT at 43. No excessive alcohol consumption has been reported, and the patient denies taking recent medications known to impact liver function such as acetaminophen. ?? Hyperlipidemia:? Most recent lipid panel has significantly improved He does report having family members with elevated cholesterol. Plan: Continue with lifestyle and dietary modifications ? . ? .. ? HTN:? Patient's blood pressure acceptable today in office. Again has been working on lifestyle and dietary modifications. Reports that home blood pressures have been stable 120s to 130 systolic. ?He denies any headaches chest pain, shortness of breath, dizziness. Blood pressure today acceptable. ? .. ? Anxiety:? Continues with the use of Wellbutrin for his anxiety. Continues to follow with psychiatrist Laboratory Tests 04/15/23 12/23/23 06/29/24 12:05 11:59 11:40 RBC 4.86 Creatinine 0.84 AST 46 H ALT 43 H LDL Cholesterol, C alc 179 H 134 H 121 H PSA Screen 1.60 PFSH Medical History Tick bite Surgical History History of vascular surgery History of nasal surgery Family History Father Hypertension Hyperlipidemia Colon cancer Mother Hypertension Hyperlipidemia Diabetes Maternal Grandmother CAD (coronary artery disease) Social History Housing: House Alcohol intake: former Patient Tobacco Use Status: Former Tobacco user e-Cigarette/Vaping Use: Never Used Second Hand Smoke Exposure: No service: No Current occupational status: employed 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 1. Little interest or pleasure in doing things: not at all 2. Feeling down, depressed, or hopeless: not at all 3. Trouble falling or staying asleep, or sleeping too much: not at all 4. Feeling tired or having little energy: not at all 5. Poor appetite or overeating: not at all 6. Feeling bad about yourself - or that you are a failure or have let yourself or your family down: not at all 7. Trouble concentrating on things, such as reading the newspaper or watching television: not at all 8. Moving or speaking so slowly that other people could have noticed. Or the opposite - being so fidgety or restless that you have been moving around a lot more than usual: not at all 9. Thoughts that you would be better off or of hurting yourself in some way: not at all Total score: 0 Depression Screening Interpretation: Negative Depression Screening Done: Yes 62811 - PHQ-9 Billing: Yes Source: Developed by Drs. Tom Osorio, Farida Estes, Chris Bain and colleagues, with an educational cesar from [employer]. Thrive Questionnaire Date Thrive assessed: 06/29/24 I am a: Patient What is your living situation today?: I have a steady place to live Within the past 12 months, did the food you bought not last and you didn't have the money to get more?: Never true Within the past 12 months, did you worry whether your food would run out before you got money to buy more?: Never true Do you have trouble paying for medicines?: No Do you have trouble getting transportation to medical appointments?: No Do you have trouble paying your heating and electricity bill?: No Do you have trouble taking care of your child, family member or friend?: No Do you have trouble with day-to-day activities such as bathing, preparing meals, shopping, managing finances, etc.?: No Are you currently unemployed and looking for a job?: No Are you interested in more education?: No Please select the resources that you would like help with: None Currently or been in a relationship where the following occur: No concerns reported THRIVE Score: 0 AUDIT C Alcohol Use Questionnaire (AUDIT-C) 1. How often do you have a drink containing alcohol?: Never 3. How often do you have six or more drinks on one occasion?: Never Total Score: 0 KYAW-7 AMB Questionnaire KYAW-7 Date KYAW - 7 assessed: 06/29/24 Feeling nervous, anxious, or on edge: 0 = Not at all Not being able to stop or control worryin = Not at all Worrying too much about different things: 0 = Not at all Trouble relaxin = Not at all Being so restless that it is hard to sit still: 0 = Not at all Becoming easily annoyed or irritable: 0 = Not at all Feeling afraid as if something awful might happen: 0 = Not at all Total KYAW-7 score (0-4 normal; 5-9 mild; 10-14 moderate; 15-21 severe): 0 Source: Developed by Drs. Tom Osorio, Farida Estes, Chris Bain and colleagues, with an educational cesar from [employer]. KYAW-7 Assessment Billing KYAW-7 Assessment Tool: KYAW-7 Assessment 47663 Review of Systems Const Denies headache(s) Eyes Denies loss of vision ENT Denies vertigo, Denies dizziness, Denies headache(s) and Denies sore throat Card Denies chest pain, Denies leg edema and Denies lightheadedness Resp Denies cough, Denies hemoptysis and Denies wheezing GI Denies abdominal pain, Denies melena, Denies constipation, Denies diarrhea and Denies vomiting Denies dysuria, Denies urinary frequency and Denies urinary urgency Musc Denies arthralgias, Denies joint swelling, Denies numbness and Denies tingling Neuro Denies Abnormal speech present, Denies behavioral changes, Denies vertigo, Denies dizziness, Denies headache(s), Denies loss of vision, Denies memory loss, Denies numbness and Denies tingling Psych Denies anxiety, Denies behavioral changes, Denies depression, Denies memory loss and Denies panic attacks Castillo/Lymph Denies easy bleeding and Denies easy bruising Aller/Immun Denies wheezing Physical exam (Primary Care) Vital Signs: Last Vital Signs Pulse 76 06/29/24 15:06 BP 128/72 06/29/24 15:06 Pulse Ox 98 06/29/24 15:06 Oxygen Delivery Method Room Air 06/29/24 15:06 BMI result Body Mass Index 24.2 Tobacco/Smoking Status: Tobacco use Status Tobacco use date assessed 06/29/24 06/29/24 15:11 Patient Tobacco Use Status Former Tobacco user 06/29/24 14:55 e-Cigarette/Vaping Use Never Used 06/29/24 14:55 PHQ-9: PHQ-9 Score PHQ-9: Total score 0 06/29/24 15:11 Depression Screening Interpretation: Negative Thrive Assessment: Date of Thrive Assessment Date Thrive assessed 06/29/24 06/29/24 15:11 Currently or been in a relationship where the following occur: No concerns reported Const General: healthy appearing, no acute distress, alert and awake Nutritional Appearance: well nourished Orientation/consciousness: oriented to person, oriented to place and oriented to time HENMT Ears: TM's normal bilaterally General nose exam: Normal nasal mucous membranes and turbinates present Eyes Conjunctivae: conjunctivae normal Sclerae: sclerae normal Pupils: Equal, round and reactive pupils present Neck Neck: Yes no lymphadenopathy and Yes no JVD Thyroid: Thyroid normal Carotids: no bruits Resp Effort & Inspection: normal respiratory effort and not tachypneic Auscultation: no crackles, no rales, no rhonchi and no wheezes Cardio Rate: regular rate Rhythm: regular rhythm Heart sounds: no murmurs and normal S1 and S2 GI Palpation (GI): Soft to palpation, nontender, no hepatomegaly and no splenomegaly Auscultation: normal bowel sounds Skin General skin exam: no rashes or lesions noted and dry skin Neuro General: oriented to person, oriented to place and oriented to time Cranial nerves: Yes Equal, round and reactive pupils present Speech: No Abnormal speech present Gait exam (Neuro): Normal gait present Motor exam (neuro): no tremor noted Extrem Right upper extremity: full ROM Left upper extremity: full ROM Right lower extremity: full ROM; no edema Left lower extremity: full ROM; no edema Psych Mental Status: mental status grossly normal Speech and movement: Normal speech and movement present Affect: normal affect Attitude: cooperative Thought process: Normal thought process present Coding Level of Care Code Est Pt Level 4 (93793) Diagnoses Essential hypertension I10 Hypertension type: essential hypertension Elevated liver enzymes R74.8 Mixed hyperlipidemia E78.2 Hyperlipidemia type: mixed hyperlipidemia Additional Codes KYAW-7 Assessment Billing - KYAW-7 Assessment Tool: KYAW-7 Assessment 31243 ([id number]) PHQ-9 - 13865 - PHQ-9 Billing: Yes ([id number]) Assessment & Plan Assessment & Plan (1) HTN (hypertension): Code(s): I10 - Essential (primary) hypertension Category: Medical Qualifiers: Hypertension type: essential hypertension Qualified Code(s): I10 - Essential (primary) hypertension Plan: Patient's blood pressure acceptable today in office. Will continue him on his current dose of lisinopril with goal blood pressure to remain below 140/90 (2) Elevated liver enzymes: Code(s): R74.8 - Abnormal levels of other serum enzymes Category: Medical Plan: I have discussed with the patient the slight elevation in liver enzymes and potential factors contributing to this, including recent viral illness and dietary factors. I recommended monitoring liver function again in four weeks to determine if the elevation persists (3) HLD (hyperlipidemia): Code(s): E78.5 - Hyperlipidemia, unspecified Category: Medical Qualifiers: Hyperlipidemia type: mixed hyperlipidemia Qualified Code(s): E78.2 - Mixed hyperlipidemia Plan: Patient's fasting lipid panel much improved since making changes in his diet and physical activity. Goal LDL to remain below 130 Orders: Orders Lipid Panel 6 Months E78.2 - Mixed hyperlipidemia Complete Blood Count no Diff 6 Months I10 - Essential (primary) hypertension Microalbumin, Random (w Creat) 6 Months I10 - Essential (primary) hypertension Liver Panel 4 Weeks R74.8 - Abnormal levels of other serum enzymes Comprehensive [place]. Panel Fast 6 Months I10 - Essential (primary) hypertension Medications: Refilled lisinopril 5 mg (1/2 x 10 mg) PO DAILY 90 days 45 tabs 1RF I10 - Essential (primary) hypertension
[2024-06-29 15:06] VITALS: BP 128/72; PULSE 76; O2SAT 98; BMI 24.2
== END 2024-06-29 15:29 | disposition home or self-care (01) ==
PROVIDERS: PCP Physician Assistant; Visit Provider Physician Assistant
DX: I10 Essential (primary) hypertension (principal); R74.8 Abnormal levels of other serum enzymes; E78.2 Mixed hyperlipidemia

== ENCOUNTER 2024-07-20 10:23 | Outpatient (REF) | payer OTHER, SELFPAY ==
[2024-07-20 13:38] LABS: Alanine Aminotransferase 27 U/L (0-40); Albumin Level 4.3 g/dL (3.5-5.0); Aspartate Amino Transferase 29 U/L (5-37); Bilirubin Direct 0.3 mg/dL (0.0-0.5); Total Protein 7.3 g/dL (6.5-8.0)
[2024-07-20 14:07] LABS: Alkaline Phosphatase 92 U/L (39-117)
--- OUTSIDE RECORDS SUMMARY | 2024-07-20 15:03 | XMS_ITS | Clinical Summary ---
Author Organization [employer] Address [address] [place] [address] Care Team Providers Care Senior Salesforce Developer Name Role Phone Unavailable Primary Care Provider Unavailabl e Social History Tobacco Use Types Packs/Day Years Used Date Smoking Tobacco: Never Assessed Sex and Gender Information Value Date Recorded Sex Assigned at Male 04/23/2022 10:25 AM EDT Legal Sex Male 10:25 AM EDT Gender Identity Male 04/23/2022 10:25 AM EDT Sexual Orientation Straight 04/23/2022 10 :25 AM EDT Plan of Treatment Health Maintenance Due Date Last Done Comments CT Colonography 1967 Colonoscopy 1967 Colorectal Cancer Screening 1967 Depression Screening 1967 FIT DNA/Cologuard 1967 FIT 1967 FOBT 1967 Lipid Panel 1965 Sigmoidoscopy 1967 Alcohol/Substance Use Screening 1979 Tobacco Screening 1979 DTaP/Tdap/Td Vaccines (1 - Tdap) 10/31/1986 Hepatitis B Vaccines (1 of 3 - 19+ 3-dose series) 10/31/1986 Zoster Vaccines (1 of 2) 10/31/2017 COVID-19 Vaccine ( - 2023-2 5 season) 2024 Influenza Vaccine (#1) 2024 RSV Patients and Pa tients Aged 60 years or older (1 - 1-dose 75+ series) 10/31/2042 HIB Vaccines Aged Out No longer eligi ble based on patient's age to complete this topic HPV Vaccines Aged Out No longer eligi ble based on patient's age to complete this topic Hepatitis A Vaccines Aged Out No long er eligible based on patient's age to complete this topic IPV Vaccines Aged Out No longer eligi ble based on patient's age to complete this topic Meningococcal Vaccine Aged Out No sanjiv olvin eligible based on patient's age to complete this topic Pneumococcal Vaccine: Pediat rics (0 to 5 Years) and At-Risk Patients (6 to 64 Years) Aged Out No longer eligible b ased on patient's age to complete this topic RSV under 20 months Aged Out No longe r eligible based on patient's age to complete this topic Rotavirus Vaccines Aged Out No longer eligible based on patient's age to complete this topic
--- OUTSIDE RECORDS SUMMARY | 2024-07-20 15:04 | XMS_ITS | Encounter Summary ---
Author Organization [employer] Address [address] [place] [address] Care Team Providers Care Glue Bone Crusher Name Role Phone Unavailable Primary Care Provider Unavailabl e Encounter Details Date Type Department Care Team (Latest Contact Info) Description 08/29/2020 Abstract [facility] CONVERSIONS Dental, Provider, DDS Social History Tobacco Use Types Packs/Day Years Used Date Smoking Tobacco: Never Assessed Sex and Gender Information Value Date Recorded Sex Assigned at Male 04/23/2022 10:25 AM EDT Legal Sex Male 10:25 AM EDT Gender Identity Male 04/23/2022 10:25 AM EDT Sexual Orientation Straight 04/23/2022 10 :25 AM EDT documented as of this encounter Plan of Treatment Not on file documented as of this encounter Visit Diagnoses Not on filedocumented in this encounter
--- OUTSIDE RECORDS SUMMARY | 2024-07-20 15:04 | XMS_ITS ---
Author Organization [facility] Address [address] [place] [address] Care Team Providers Care Transportation Superintendent Name Role Phone Jair Hammond Primary Care Provider Unavailab Tom Schuler Unavailable [phone] REASON FOR VISIT rescheduled appt on 04/24/2024. Encounters Encounter Location Date Provider Diagnosis [facility] [address] [place] [address] 04/20/2024 Tom Buckner PLAN OF TREATMENT Next Appt Details Provider Name:Tom Buckner , 07/31/2024 02:20:00 PM, [address], [address], [place], [address],
--- OUTSIDE RECORDS SUMMARY | 2024-07-20 15:04 | XMS_ITS | Patient Health Record ---
Author Organization [facility] Address [address] [place] [address] Care Team Providers Care Academic Affairs Vice President Name Role Phone Jair Hammond Primary Care Provider Unavailab Lary Schuler Unavailable [phone] REASON FOR REFERRAL No Information MEDICATIONS Medication [...] malignant neoplasm of colon (Z12.11) Active confirmed 164976217 Problem Family history of colon cancer (Z80.0) Active confirmed 245363995 Problem Preprocedural examination (Z01.818) Active confirmed 123584125 Encounters Encounter Location Date Provider Diagnosis [facility] [address] [place] [address] 04/24/2024 Lary Buckner [facility] [address] [place] [address] 04/20/2024 Lary Buckner PLAN OF TREATMENT Future Test Test Name Order Date COLONOSCOPY 03/01/2017 Next Appt Details Provider Name:Lary Buckner , 07/31/2024 02:20:00 PM, [address], [address], [place], [address], Insurance Providers Payer Name Payer Address Payer Phone Subscriber Number Group Number Insured Name Patient Relationship to Insured Coverage Start Date Coverage End Date CIGNA [address] [place], [place] [address] [id number] LARY FARRIS Self - patient is the insured MEDICAL (GENERAL) HISTORY Medical History History ICD Code Hypertension Denies [place],DM,CVA,Lung disease,renal dise ase Depression Surgical History Surgery Date(Month/Year) Left knee arthroscopy 1990 Bilateral inguinal hernias as a child
--- OUTSIDE RECORDS SUMMARY | 2024-07-20 15:04 | XMS_ITS ---
Author Organization [facility] Address [address] [place] [address] Care Team Providers Care Matrix Bath Attendant Name Role Phone Jair Hammond Primary Care Provider Unavailab Tom Schuler Unavailable [phone] REASON FOR VISIT Patient presents today for a colon screening Encounters Encounter Location Date Provider Diagnosis [facility] [address] [place] [address] 04/24/2024 Tom Buckner PLAN OF TREATMENT Next Appt Details Provider Name:Tom Buckner , 07/31/2024 02:20:00 PM, [address], [address], [place], [address],
== END 2024-07-20 10:24 | disposition home or self-care (01) ==
LOC: HO.10HDL 10:23
PROVIDERS: Visit Provider Physician Assistant
DX: R74.8 Abnormal levels of other serum enzymes (principal)
CPT/HCPCS: 36415; 80076

== ENCOUNTER 2024-07-24 15:15 | Outpatient (AMB) | payer OTHER, SELFPAY ==
--- NOTE | 2024-07-24 15:18 | AM.OFFWIN_ITS ---
Intake Vital Signs 3 07/24/24 15:21 Weight 161 lb BP 120/78 Blood Pressure Location Lt brachial Position Sitting Pulse 78 Pulse Source Pulse Oximeter Temp 98.2 F Temp Source Oral Pulse Oximetry (%) 99 Oxygen Delivery Method Room Air Intake Visit Reasons: EP-rt arm bitten by a dog Intake Note: Patient here because he was bit by a dog on right arm two days ago. Patient Tobacco Use Status: Former Tobacco user Allergies bee stings Allergy (Unknown, Uncoded 07/24/24 15:21) Unknown Do you need a note to return to daycare/school/sports/work: Yes HPI HPI Comments 2 History of Present Illness0 Details 58 y/o male patient who presents to the walk in clinic with c/o Dog Bite right Arm that happened 2 days ago. Pt reports that [facility] ago when a large PitBull Attacked him and bit his right Arm. Reports that the Dog wasn't his and he did not bother to question the knuckle strap sewer regarding Vaccination status of the Animal. Denies any Symptoms today, just Mild pain at the injury site. Will Administer Tdap today and Prophylactic Abx. Advised Pt to go to Emergency Room for Rabies Shot. 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[employer] Cognitive needs: No Hearing needs: No Vision needs: Yes (glasses) Review of Systems Const All systems reviewed & are unremarkable except as noted in HPI and below Physical Exam Vital Signs: Last Vital Signs Temp 98.2 F 07/24/24 15:21 Pulse 78 07/24/24 15:21 BP 120/78 07/24/24 15:21 Pulse Ox 99 07/24/24 15:21 Oxygen Delivery Method Room Air 07/24/24 15:21 Const General: cooperative and no acute distress Nutritional Appearance: well nourished Orientation/consciousness: patient oriented x3 Resp Effort & Inspection: normal respiratory effort Auscultation: clear to auscultation bilaterally Cardio Heart sounds: S1 normal heart sound present and S2 normal heart sound present Neuro General: patient oriented x3, gait normal and moves all extremities Extrem Elbow/forearm/wrist images: 2 1. Visible Deep teeth Colbert, erythema TTP. No swelling, no drainage. Immunizations Boostrix Tdap 2.5 Lf unit-8 mcg-5 Lf/0.5 mL intramuscular syringe Performing Provider: Cassandra Jones NP Performing Location: [facility] Administered by: ORTEGA Louise on 07/24/24 15:44 2 Dose Route Admin Location Dispensed Lot Number Expiration Date [facility] Supervisor [employer] 0.5 mL IM Left Deltoid 0.5 mL [id number] 07/15/26 [id number] [employer] 2 VIS Given Date VIS Provided VIS Publication Date 07/24/24 Single Vaccine 21 Eligibility Eligibility Date Funding Source Not [facility] Eligible 07/24/24 Private Assessment & Plan Assessment & Plan (1) Dog bite of arm: Code(s): S41.159A - Open bite of unspecified upper arm, initial encounter; W54.0XXA - Bitten by dog, initial encounter Qualifiers: Encounter type: initial encounter Laterality: right Qualified Code(s): S41.151A - Open bite of right upper arm, initial encounter; W54.0XXA - Bitten by dog, initial encounter Plan: Ordered Prophylactic Abx Administered Tdap Today Advised Pt to Obtain Rabies Shot series at ED. Orders: Orders 2 TDaP Immunization Today Z23 - Encounter for immunization Medications: New 2 amoxicillin-pot clavulanate 875-125 mg 1 tab PO BID 10 tabs 0RF 5 days S41.151A - Open bite of right upper arm, initial encounter, W54.0XXA - Bitten by dog, initial encounter Coding Level of Care Code Est Pt Level 4 (98789) Diagnoses Dog bite of right upper extremity, initial encounter S41.151A; W54.0XXA Encounter type: initial encounter Laterality: right Time Spent (min) 20
--- OUTSIDE RECORDS SUMMARY | 2024-07-24 15:18 | XMS_ITS | Encounter Summary ---
Author Organization [employer] Address [address] [facility] [address] [place] [address] Care Team Providers Care Trial Court Judge Name Role Phone Unavailable Primary Care Provider [...]
--- OUTSIDE RECORDS SUMMARY | 2024-07-24 15:18 | XMS_ITS | Clinical Summary ---
Author Organization [employer] Address [address] [facility] 7t [place] [address] Care Team Providers Care Charger Tester Name Role Phone Unavailable Primary Care Provider [...] of 3 - 19+ 3-dose series) 10/31/1986 Pneumococcal Vaccine: 50+ Ye ars (1 of 1 - PCV) 10/31/2017 Zoster Vaccines (1 of 2) 10/31/2017 COVID-19 Vaccine (2023-2 5 season) 2024 Influenza Vaccine (#1) 2024 [...] 5 Years) and At-Risk Patients (6 to 49) Years) Aged Out No longer eligible b ased on patient's age to complete this topic RSV under 20 months Aged Out No longe r eligible based on patient's age to complete this topic Rotavirus Vaccines Aged Out No longer eligible based on patient's age to complete this topic
[2024-07-24 15:21] VITALS: BP 120/78; PULSE 78; TEMP 36.8; O2SAT 99
== END 2024-07-24 15:53 | disposition home or self-care (01) ==
PROVIDERS: PCP Physician Assistant; Visit Provider Nurse Practitioner Family
DX: S41.151A Open bite of right upper arm, initial encounter (principal); W54.0XXA Bitten by dog, initial encounter; Z23 Encounter for immunization

== ENCOUNTER → 2024-07-24 15:15 | Outpatient (BNVA) | payer OTHER, SELFPAY | PROVIDERS: PCP Physician Assistant | DX: S41.151A Open bite of right upper arm, initial encounter (principal); Z23 Encounter for immunization; W54.0XXA Bitten by dog, initial encounter; Y93.9 Activity, unspecified; Y92.89 Other specified places as the place of occurrence of the external cause; Y99.9 Unspecified external cause status | CPT/HCPCS: 90471; 90715 ==

== ENCOUNTER 2024-11-09 09:11 | Day surgery (SDC) | payer OTHER, SELFPAY ==
[2024-11-05 14:01] VITALS: BMI 24.8
--- OUTSIDE RECORDS SUMMARY | 2024-11-05 15:03 | XMS_ITS | Patient Health Record ---
Author Organization [facility] Address [address] [place] [address] Care Team Providers Care Block Making Machine Operator Name Role Phone Jair Hammond Primary Care Provider Unavailab Lary Schuler Unavailable [phone] Allergies No Known Allergies Reason For Referral No Information Medications Medication SIG (Take, Route, Fr equency, Duration) Notes Start Date End Date Status Wellbutrin XL 300 MG 1 tablet in the mor sravanthi Orally Once a day Active Lisinopril 10 MG 1 tablet Orally Once a day Active Immunizations Vaccine Route Administration Date Status Comme nts Influenza Unknown 03/17/2024 Administered Social History Tobacco Use: Social History Observation Description Date Details (start date - stop date) Former Smoker NA - NA Tobacco Use/Smoking Question Answer Notes Patient is [...] Never (0 point) Points 2 Interpretation Negative Section Notes: Nonsmoker > 10 years; occ. a lcohol Nonsmoker > 10 years; occ. a lcohol Problems Problem Type SNOMED Code ICD Code Onset Dates Problem Status W/U Status Risk Notes Problem 474995433 Encounter for screening for malignant neoplasm of colon (Z12.11) Active confirmed Problem 264027319 Preprocedural examination (Z01.818) Active confirmed Problem 355642010 Family history o f colon cancer (Z80.0) Active confirmed Vital Signs Temperature 97.7 degrees Fahrenheit 07/31/2024 Blood pressure diastolic 00 mm Hg 07/31/2024 Height 68 in 07/31/2024 Blood pressure systolic 000 mm Hg 07/31/2024 Weight 163 lbs 07/31/2024 BMI 24.78 kg/m2 07/31/2024 Encounters Encounter Location Date Provider Diagnosis [facility] [address] [place] [phone] 07/31/2024 Lary Buckner Encounter for screen ing for malignant neoplasm of colon Z12.11 ; Preprocedural examination Z01.818 and Family history of colon cancer Z80.0 [facility] [address] [place] [phone] 04/20/2024 Lary Buckner [facility] [address] [place] [phone] 10/05/2024 Lary Buckner Assessments Encounter Date Diagnosis (ICD Code) Assessment Notes Treatment Notes Treatment Clinical Notes Section Notes 07/31/2024 Encounter for screening for malignant neoplasm of colon (ICD-10 - Z12.11) Overall, Lary appears quite well. Given his age, good clinical appearance, significant family history of colorectal cancer in his father at a relatively early age in his early 60s, and his last screening coloscopy being over 7 years ago, I did recommend a followup colonoscopy for further screening purposes. We did review the rationale for this in regard to colon cancer prevention. The procedure will be done monitored anesthesia care. Lary was comfortable with this plan. Thank you again for allowing me to participate in Lary's care. I shall continue to keep you advised of his progress. 07/31/2024 Preprocedural examination (ICD-10 - Z01.818) Overall, Lary appears quite well. Given his age, good clinical appearance, significant family history of colorectal cancer in his father at a relatively early age in his early 60s, and his last screening coloscopy being over 7 years ago, I did recommend a followup colonoscopy for further screening purposes. We did review the rationale for this in regard to colon cancer prevention. The procedure will be done monitored anesthesia care. Lary was comfortable with this plan. Thank you again for allowing me to participate in Lary's care. I shall continue to keep you advised of his progress. 07/31/2024 Family history of colon cancer (ICD-10 - Z80.0) Overall, Lary appears quite well. Given his age, good clinical appearance, significant family history of colorectal cancer in his father at a relatively early age in his early 60s, and his last screening coloscopy being over 7 years ago, I did recommend a followup colonoscopy for further screening purposes. We did review the rationale for this in regard to colon cancer prevention. The procedure will be done monitored anesthesia care. Lary was comfortable with this plan. Thank you again for allowing me to participate in Lary's care. I shall continue to keep you advised of his progress. Plan Of Treatment Future Test Test Name Order Date COLONOSCOPY 03/01/2017 COLONOSCOPY 07/31/2024 Next Appt Details Provider Name:Lary Buckner , 11/09/2024 10:30:00 AM, [address] [place] [address], [phone], Insurance Providers Payer Name Payer Address Payer Phone Subscriber Number Group Number Insured Name Patient Relationship to Insured Coverage Start Date Coverage End Date [employer] [address] [address] [place] [address] [phone] [id number] LARY FARRIS Self - patient is the insured Medical (General) History Medical History History ICD Code Hypertension Denies ID,DM,CVA,Lung disease,renal dise ase Depression Negative screening colonoscopy in 7 Surgical History Surgery Date(Month/Year) Left knee arthroscopy 1990 Bilateral inguinal hernias as a child
--- OUTSIDE RECORDS SUMMARY | 2024-11-05 15:03 | XMS_ITS ---
Author Organization [facility] Address [address] [facility] [address] [place] [phone] Care Team Providers Care Heat Sealing Machine Operator Name Role Phone Jair Hammond Primary Care Provider Unavailab Lary Schuler [phone] REASON FOR VISIT Patient presents today for a colon screening Encounters Encounter Location Date Provider Diagnosis [facility] [address] [facility] [address] [place] [phone] 04/24/2024 Lary Buckner Plan Of Treatment Next Appt Details Provider Name:Lary Buckner , 11/09/2024 10:30:00 AM, [address] [place] [address], [phone], Progress Notes * LARY FARRIS WDOB:[birth year] (59 yo M)Acc No.[id number]:04/24/2024 Progress Notes Patient:?LARY FARRIS Provider:?Lary Buckner MD :1965???Age:58 Y???Sex:Male José Miguel e:04/24/2024 Address:[address] [place], [place] [phone] Pcp:Jair Hammond Subjective: * Chief Complaints: * ???1. Patient presents today for a colon screening. * Medical History:? Objective: * Vitals:? Assessment: Plan: * Treatment: * * The named appointment provid er may or may not be the originator of this progress note, and it is not deemed complete until electronically signed by the appointment provider. Sign off status: Pending * Provider:?Lary Buckner MD Date:? 024 Generated for Pearl mohan/Karlos/Romie on:?11/05/2024 03:03 PM EDT
--- OUTSIDE RECORDS SUMMARY | 2024-11-05 15:03 | XMS_ITS | Clinical Summary ---
Author Organization [employer] Address [address] [facility] 7t [place] [address] Care Team Providers Care Office Machines Sales Representative Name Role Phone Unavailable Primary Care Provider [...]
--- OUTSIDE RECORDS SUMMARY | 2024-11-05 15:03 | XMS_ITS | Encounter Summary ---
Author Organization [employer] Address [address] [facility] 7t [place] [address] Care Team Providers Care Resource Manager Forester Name Role Phone Unavailable Primary Care Provider [...]
--- OUTSIDE RECORDS SUMMARY | 2024-11-05 15:03 | XMS_ITS ---
Author Organization [facility] Address [address] [place] [phone] Care Team Providers Care Railroad Brake Operator Name Role Phone Jair Hammond Primary Care Provider Unavailab Lary Schuler Unavailable [phone] REASON FOR VISIT change of insurance Encounters Encounter Location Date Provider Diagnosis [facility] [address] [place] [phone] 10/05/2024 Lary Buckner Plan Of Treatment Next Appt Details Provider Name:Lary Buckner , 11/09/2024 10:30:00 AM, [address] [place] [address], [phone], Progress Notes * LARY FARRIS WDOB:[birth year] (58 yo M)Acc No.[id number]:10/05/2024 Patient:?LARY FARRIS :1965???Age:58 Y???Sex:Male Address:[address] [place] [address], [address] * true * Date:? Generated for Printi ng/Fakarig/eTransmitting on:?11/05/2024 03:02 PM EDT
--- OUTSIDE RECORDS SUMMARY | 2024-11-05 15:04 | XMS_ITS ---
Author Organization [facility] Address [address] [place] [address] Care Team Providers Care Air Drill Operator Name Role Phone Jair Hammond Primary Care Provider UnavailLary Carrion Unavailable [phone] Allergies No Known Allergies REASON FOR VISIT Patient presents today for a colon screening Medications Medication SIG (Take, Route, Fr equency, Duration) Notes Start Date End Date Status Wellbutrin XL 300 MG 1 tablet in the mor sravanthi Orally Once a day Active Lisinopril 10 MG 1 tablet Orally Once a day Active Social History Tobacco Use: Social History Observation [...] Nonsmoker > 10 years; occ. a lcohol Vital Signs Temperature 97.7 degrees Fahrenheit 07/31/19 25 Blood pressure systolic 000 mm Hg 07/31/19 25 Blood pressure diastolic 00 mm Hg 025 Height 68 in 07/31/2024 Weight 163 lbs 07/31/2024 BMI 24.78 kg/m2 07/31/2024 Encounters Encounter Location Date Provider Diagnosis [facility] [address] [place] [address] 07/31/2024 Lary Buckner Encounter for screen ing for malignant neoplasm of colon Z12.11 ; Preprocedural examination Z01.818 and Family history of colon cancer Z80.0 Assessments Encounter Date Diagnosis (ICD Code) Assessment [...] Future Test Test Name Order Date COLONOSCOPY 07/31/2024 Next Appt Details Follow Up: prn, Reason: Provider Name:Lary Buckner , 11/09/2024 10:30:00 AM, [address] [place], [place], [phone], Progress Notes * LARY FARRIS WDOB:[birth year] (58 yo M)Acc No.[id number]:07/31/2024 Progress Notes Patient:?LARY FARRIS Provider:?Lary Buckner MD :1965???Age:58 Y???Sex:Male José Miguel e:07/31/2024 Address:[address] [place], [place] [phone] Pcp:Jair Hammond Subjective: * Chief Complaints: * ???Patient presents today fo r a colon screening * HPI: ???incontinence:? I saw Lary in the office today for evaluation of colorectal cancer screening in regard to his family history of colon cancer. ?I last saw Lary in April of 2017, at which time he underwent a negative screening colonoscopy. He presently feels very well. He enjoys a good appetite, without any significant heartburn or dysphagia. His bowel movements have been regular and without any signs of bleeding. He denies any abdominal pain, jaundice, or unintentional weight loss. His family history is notable for his father having had colon cancer in his early 60s. * ROS:?General/Constitutional:?Change in appetite?denies.?Chills?denies.?Fatigue?denies.?Ophthalmologic:?Comments?all negative.?ENT:?Comments?all negative.?Respiratory:?hemoptysis?denies.?Cough?denies.?Cardiovascular:?Chest pain?denies.?Orthopnea?denies.?Gastrointestinal:?Comments?See HPI for details.?Genitourinary:?Hematuria?denies.?Dysuria?denies.?Musculoskeletal:?Painful joints?denies.?Weakness?denies.?Skin:?Itching?denies.?Rash?denies.?Neurologic:?Headache?denies.?Seizures?denies.?Psychiatric:?Comments?all negative.? * Medical History:? * Surgical History:?Left knee arthroscopy 1991Bilateral inguinal hernias as a child * Hospitalization/Major Diagno stic Procedure:?No Hospitalization History. * Family History:?Father: dece ased, In his early 60's, diagnosed with Colon cancer, Colon polyps.?Mother: alive, diagnosed with Diabetes.? * Social History:?Tobacco Use:?Tobacco Use/Smoking?Patient is a?former smoker,?How long has it been since you last smoked??> 10 years.?Drugs/Alcohol:?Alcohol Screen?Did you have a drink containing alcohol in the past year??Yes,?How often did you have a drink containing alcohol in the past year??2 to 4 times a month (2 points),?How many drinks did you have on a typical day when you were drinking in the past year??1 or 2 drinks (0 point),?How often did you have 6 or more drinks on one occasion in the past year??Never (0 point),?Points?2,?Interpretation?Negative.?Miscellaneous:?Marital status: . Occupation: survey worker--truckdriver. ???Nonsmoker >10 years; occ. alcohol. * Medications:?TakingLisinopri l 10 MG Tablet 1 tablet Orally Once a dayWellbutrin XL 300 MG Tablet Extended Release 24 Hour 1 tablet in the morning Orally Once a dayMedication List reviewed and reconciled with the patientTaking Lisinopril 10 MG Tablet 1 tablet Orally Once a dayTaking Wellbutrin XL 300 MG Tablet Extended Release 24 Hour 1 tablet in the morning Orally Once a dayMedication List reviewed and reconciled with the patient * Allergies:?N.K.D.A.yes[Aller gies Verified] Objective: * Vitals:?Wt: 163 lbs, Ht: 68 in, BMI:24.78 Index, BP: 000/00 mm Hg, Temp: 97.7. * Examination: ???General Examination: ?GENERAL APPEARANCE:?pleasant, well nourished, well developed, in no acute distress.?EYES:?sclera non-icteric.?ORAL CAVITY:?mucosa moist.?NECK/THYROID:?no cervical lymphadenopathy, neck supple.?SKIN:?nonjaundiced, no spider angiomata.?HEART:?S1, S2 normal.?LUNGS:?clear to auscultation bilaterally.?ABDOMEN:?normal bowel sounds, no guarding or rigidity, no guarding or rigidity, no masses palpable, soft, nontender, nondistended.?EXTREMITIES:?no edema.?NEUROLOGIC:?alert and oriented.? Assessment: * Assessment: 1.?Preprocedural examination - Z01.818 (Primary)?2.?Encounter for screening for malignant neoplasm of colon - Z12.11?3.?Family history of colon cancer - Z80.0? Overall, Lary appears quit e well. Given his age, good clinical appearance, [...] to keep you advised of his progress. Plan: * Treatment: 2.?Family history of colon cancer?Procedure: COLONOSCOPY (Ordered for 07/31/2024)* with MACsched for 11/09/24 at 11:30 pmmiralax2/10 brenda krishnamurthy per Molly Nevarez 7:46 PATIENT CARE SECRETARY * Procedure Codes:?3017F COLOR ECTAL CA SCREEN DOC [id number] TOBACCO NON-ENXQS2798 BP SCR NOT PRFRM REC REASON NOS * Follow Up:?prn * * Sign off status: Completed true * Provider:?Lary Buckner MD Date:? 025 Generated for Printi ng/Fakarig/eTransmitting on:?11/05/2024 03:03 PM EDT History and Physical Notes * HPI (History of Present Illness) Category Sub-Category Detail Notes Category Not es incontinence I saw Lary in the office today for evaluation of colorectal cancer screening in regard to his family history of colon cancer. I last saw Lary in April of 2017, at which time he underwent a negative screening colonoscopy. He presently feels very well. He enjoys a good appetite, without any significant heartburn or dysphagia. His bowel movements have been regular and without any signs of bleeding. He denies any abdominal pain, jaundice, or unintentional weight loss. His family history is notable for his father having had colon cancer in his early 60s. Examination Category Sub-Category Detail Notes Category Not es General Examination GENERAL APPEARANCE: pleasant , well nourished, well developed, in no acute distress HEAD: EYES: sclera non-icteric EARS: NOSE: THROAT: NECK/THYROID: no cervical lymphade nopathy, neck supple HEART: S1, S2 normal CHEST: LUNGS: clear to auscultatio n bilaterally ABDOMEN: normal bowel sounds, no guarding or rigidity, no guarding or rigidity, no masses palpable, soft, nontender, nondistended NEUROLOGIC: alert and oriented SKIN: nonjaundiced, no spi miriam angiomata EXTREMITIES: no edema PERIPHERAL PULSES: BACK: BREASTS: MUSCULOSKELETAL: MALE GENITOURINARY: LYMPH NODES: RECTAL EXAM: FEMALE GENITOURINARY: ORAL CAVITY: mucosa moist
--- NOTE | 2024-11-06 08:56 | HO.ANESPROP2 ---
Documented by User: Rissa Mercado NP 11/06/24 08:57 HPI - Anesthesia Eval Consult details Narrative: 59yo M for Colonoscopy PMFSH Active Problems Active Problems: All Active Problems Dog bite of arm (Acute) Elevated liver enzymes (Acute) Hordeolum of lower eyelid (Acute) Family history of colon cancer in father (Acute) Annual physical exam (Acute) KYAW (generalized anxiety disorder) (Acute) HLD (hyperlipidemia) (Acute) HTN (hypertension) (Acute) Past Medical History Medical History Anxiety Elevated cholesterol HTN (hypertension) Family History Family History Father Hypertension Hyperlipidemia Colon cancer Mother Hypertension Hyperlipidemia Diabetes Maternal Grandmother CAD (coronary artery disease) Surgical History Surgical History Hx of arthroscopy of left knee Hx of bilateral inguinal hernia repair H/O colonoscopy History of vascular surgery History of nasal surgery Social History Social History Household Members Other:: daughter Housing: House Are you a primary healthcare science specialist to a significant other at home: No Do you presently have visiting nurse or other home services: No Alcohol intake: former Patient Tobacco Use Status: Former Tobacco user e-Cigarette/Vaping Use: Never Used Second Hand Smoke Exposure: No Have you been hit, kicked, punched, or otherwise hurt by someone within the past year? 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[employer] Cognitive needs: No Hearing needs: No Vision needs: Yes (glasses) Meds Allergies Allergy/AdvReac Type Severity Reaction Status Date / Time bee pollen [bee stings] Allergy Unknown Unknown Verified 11/09/24 09:20 Home Medications ?Medication ?Instructions ?Recorded ?Confirmed ?Last Taken ?Type bupropion HCl 150 mg 24 hr tablet, 300 mg PO QAM 11/23/21 11/05/24 Unknown History extended release (Wellbutrin XL) Exam Height,Weight and Vital Signs: Height 5 ft 8 in Weight 73.936 kg Assessment and Plan Assessment Anesthesia Assessment: Chart Reviewed Documented by User: Xuan Steinberg MD 11/09/24 09:52 PMFSH Past Medical History Medical History Anxiety Elevated cholesterol HTN (hypertension) Family History Family History Father Hypertension Hyperlipidemia Colon cancer Mother Hypertension Hyperlipidemia Diabetes Maternal Grandmother CAD (coronary artery disease) Surgical History Surgical History Hx of arthroscopy of left knee Hx of bilateral inguinal hernia repair H/O colonoscopy History of vascular surgery History of nasal surgery History of Problems with Anesthesia: No Social History Social History Household Members Other:: daughter Housing: House Are you a primary healthcare science specialist to a significant other at home: No Do you presently have visiting nurse or other home services: No Alcohol intake: former Patient Tobacco Use Status: Former Tobacco user e-Cigarette/Vaping Use: Never Used Second Hand Smoke Exposure: No Have you been hit, kicked, punched, or otherwise hurt by someone within the past year? 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[employer] Cognitive needs: No Hearing needs: No Vision needs: Yes (glasses) Meds Allergies Allergy/AdvReac Type Severity Reaction Status Date / Time bee pollen [bee stings] Allergy Unknown Unknown Verified 11/09/24 09:20 Home Medications ?Medication ?Instructions ?Recorded ?Confirmed ?Last Taken ?Type bupropion HCl 150 mg 24 hr tablet, 300 mg PO QAM 11/23/21 11/05/24 Unknown History extended release (Wellbutrin XL) Exam Airway Mallampati Class: II TM Dist: >3cm Neck ROM: Full Loose/Missing/Broken Teeth: Yes and Upper Heart: RRR Lungs: CTA Assessment and Plan Assessment Anesthesia Assessment: Anesthesia Plan Discussed Final Anesthetic Review History of Problems with Anesthesia: No NPO: Yes ASA Class: II Final Preanesthetic Review: Meds/Allgs Chart Reviewed, Consent Obtained/Reviewed and Anes Risks/Benef Reviewed Patient Risk: Low Procedure Risk: Low Anesthetic Plan Anesthetic Plan: MAC: Disposition: Standard PACU
[2024-11-09 09:19] VITALS: BMI 24.2
[2024-11-09] MEDS: Lactated Ringers 1,000 ML 100 ML IVCONT (09:26)
[2024-11-09 09:34] VITALS: BP 129/85; PULSE 70; RESP 18; TEMP 36.8; O2SAT 96
[2024-11-09 10:35] VITALS: BP 106/70; PULSE 74; RESP 18; TEMP 36.1; O2SAT 98
--- NOTE | 2024-11-09 10:38 | PM.OP ---
Brief Operative Note Date of Service: 11/09/24 Pre-op diagnosis: Screening Post-op diagnosis: other (Polyps) Procedure: Colonoscopy to the cecum with cold snare polypectomy of cecal polyp, and bx/removal of polyp Surgeon: Tom Buckner MD Anesthesia: MAC Was an Supervisor Phosphoric Acid used for this Procedure?: No Estimated blood loss (mL): 2.0 Pathology: other (A. Cecal polyp B. Transverse colon polyp) Condition: stable Disposition: PACU
[2024-11-09 10:50] VITALS: BP 119/73; PULSE 70; RESP 18; O2SAT 98
[2024-11-09 10:55] VITALS: BP 120/80; PULSE 74; RESP 18; TEMP 36.6; O2SAT 98
--- NOTE | 2024-11-09 11:16 | OP_ITS ---
DATE OF SERVICE: 11/09/2024 SURGEON: Tom Buckner MD INDICATIONS: Family history of colon cancer in his father and colorectal cancer screening. Full consent obtained from him for this, including risks of bleeding and perforation. PREOPERATIVE DIAGNOSIS: POSTOPERATIVE DIAGNOSIS: PROCEDURE PERFORMED: Colonoscopy to the cecum with cold snare polypectomy and biopsy and removal of polyp. ESTIMATED BLOOD LOSS: COMPLICATIONS: ANESTHESIA: Monitored anesthesia care. ASSISTANTS: SPECIMENS: PREOPERATIVE DIAGNOSES: Family history of colon cancer in his father, and colorectal cancer screening. POSTOPERATIVE DIAGNOSES: Family history of colon cancer in his father, and colorectal cancer screening, colon polyps, diverticulosis, and internal hemorrhoids. DESCRIPTION OF PROCEDURE: The patient was placed in the left lateral decubitus position. The digital rectal exam revealed no abnormalities. The Olympus video pediatric colonoscope was inserted into the rectum and advanced easily to the cecum. Once in the cecum, I did identify normal-appearing cecal pouch other than an approximately 5 or 6 mm flat, but raised polyp, which was removed by cold snare polypectomy and recovered by suction. The polypectomy site appeared clean, without any sign of residual polyp nor significant bleeding. The remainder of the cecum including the appendiceal orifice appeared normal. The ileocecal valve appeared normal. The scope was slowly withdrawn assessing all mucosal surfaces carefully. Preparation was excellent. In the transverse colon was an approximately 4 mm polyp, which was biopsied and completely removed with cold biopsy forceps. I did not visualize any other polyps, colitis nor angiodysplasia. There was a moderate amount of sigmoid diverticulosis. In the rectum, scope was retroflexed visualizing internal hemorrhoids, but no other pathology. The rectal mucosa appeared normal. The scope was straightened and withdrawn from the patient. He tolerated the procedure well and was returned to recovery area in stable condition. IMPRESSION: 1. Small colon polyps. 2. Diverticulosis. 3. Internal hemorrhoids. PLAN: The results of the biopsies will be checked. I would recommend a followup colonoscopy in 5 years due to the family history. He will otherwise see me on a p.r.n. basis. He was advised not to use any aspirin and NSAIDs for 1 week. MD LANI Dial/PAM / [id number] [facility] MEDICAL CENTERLyudmila
== END 2024-11-09 11:11 | disposition home or self-care (01) ==
PROVIDERS: PCP Physician Assistant; Visit Provider Internal Medicine
PROC: 0DJD8ZZ Inspection of Lower Intestinal Tract, Via Natural or Artificial Opening Endoscopic (ICD-10-PCS; CPT 45378; principal; 2024-11-09 10:30)
DX: Z12.11 Encounter for screening for malignant neoplasm of colon (principal); D12.0 Benign neoplasm of cecum; D12.3 Benign neoplasm of transverse colon; K57.30 Diverticulosis of large intestine without perforation or abscess without bleeding; K64.8 Other hemorrhoids; Z80.0 Family history of malignant neoplasm of digestive organs; I10 Essential (primary) hypertension; Z79.899 Other long term (current) drug therapy
CPT/HCPCS: 45385; 45380; 88305; J1596; J2003; J2704

== ENCOUNTER 2024-12-22 11:52 | Outpatient (REF) | payer OTHER, SELFPAY ==
--- OUTSIDE RECORDS SUMMARY | 2024-11-09 06:30 | XMS_ITS ---
Author Organization [facility] Address [address] [place] [address] Care Team Providers Care Safety Deposit Supervisor Name Role Phone Jair Hammond Primary Care Provider Unavailab Lary Schuler Unavailable [phone] REASON FOR VISIT screening Encounters Encounter Location Date Provider Diagnosis [facility] Outpatient [address] [place], [place] [phone] 11/09/2024 Lary Buckner Colon cancer scree sravanthi [...] LARY FARRIS WDOB:[birth year] (59 yo M)Acc No.[id number]:11/09/2024 COLON WITH MAC Patient: LARY ZAMORANO Provider: Neelam Buckner MD :1965 A ge:59 Y S ex:Male Date:11/09/2024 Address:[address] [place], [place] [phone] Pcp:Jair Hammond Subjective: * Chief Complaints: * [...] 5385 LESION REMOVAL COLONOSCOPY, Modifiers: PT , [address] COLONOSCOPY AND BIOPSY, Modifiers: 59 , PT * * The named appointment provid er may or may not be the originator of this progress note, and it is not deemed complete until electronically signed by the appointment provider. Sign off status: Pending * Provider: Neelam Buckner MD Date: 0 11/09/2024 Generated for Pearl mohan/Karlos/Aprilitting on: 0 12/22/2024 01:02 PM EDT
--- OUTSIDE RECORDS SUMMARY | 2024-12-22 04:30 | XMS_ITS | Continuity of Care Document ---
Author Organization [facility] Address [address] [place] [address] [address] [place] [address] Phone Care Team Providers Care Clock And Watch Hands Dipper Name Role Phone Shyanne DARLING, Mayra Unavailable Unavailable Allergies, Adverse Reactions, Alerts Substance Reaction Status Criticality No Known Allergies Active No Inform ation Procedures Procedure Date Varithena, Single Truncal Vein - CT & [place] Office/Oupt E&M New Pt 30 Mins- CT & [place] Surgical Stockings CVR Reveal Knee High Duplex Scan-extrem Veins; Comp- CT & [place] Advance Directives Directive Yes / No Effective Date File Name No Information Encounters Encounter Description Practice Location Reason(s) For Visit Diagnoses Date Provider Providers Copied on Encounter [facility], [address] [place] [address] [address], [place], [id number], [place] tel:[phone] CVR - [facility] No Information 5 Shyanne Nunez. [address] [facility], [address], [place], [place], [id number], [place]. tel:[phone] Referring Provider: Jair Peters, [address], [address], [place], [address]. tel:[phone] [facility], [address] [place] [address] [address], [place], [id number], [place] tel:[phone] CVR - [facility] Varicose veins of right lower extremity with other complications 5 Jose DARLING RVT, RPVI Robert. [address] [facility], [address], [place], [id number], [place]. tel:[phone] Referring Provider: Jair Peters, [address], [address], [place], [address]. tel:[phone] [place] [facility], [address] [place] [address] [address], [id number], [place] tel:[phone] CVR - [place] [facility] [place] No Information 5 Jose DARLING RVT, RPVI Robert. [address] [place] [address], [address], [place], [id number], [place]. tel:[phone] Office/Oupt E&M New Pt 30 Mins- CT & [place] [facility], [address] [place] [address] [address]Suite [place], [id number], [place] tel:[phone] CVR - [place] [facility] [place] Chronic venous hypertension (idiopathic) without complications of bilateral lower extremityRestl ess legs syndromeEssent ial (primary) hypertensionVe nous insufficiency (chronic) (peripheral)Cr amp and spasmLocalized edema 5 Jose DARLING RVT, RICCARDO Santos. [address] [facility], [address], [place], [id number], [place]. tel:[phone] [place] [facility], [address] [place] [address] [address], [id number], [place] tel:[phone] CVR - [place] [facility] [place] Chronic venous hypertension (idiopathic) with other complications of bilateral lower extremity 5 Jose DARLING RVT, RPVI Robert. [address] [place] [address], [address], [place], [id number], [place]. tel:[phone] Referring Provider: Jair Peters, [address], [address], [place], [address]. tel:[phone] Family History Family Member Type Diagnosis Age At Onset No Information Payers Payer name Insurance type Covered constitution party ID Rosalio deng(s) [facility] CI [id number] Social History Type Description Quantity Date Captured Comments Sex Male Smoking Status No Information Chief Complaint And Reason For Visit No Information Reason For Referral Reason For Referral No Information Plan Of Treatment Date Type Action Status Goal Tobacco cessation counseling completed Goal Diet education completed Referral Ordered: Weight management: Referral to physician timeframe: 3 Months (related to Body mass index (BMI) 25.0-25.9, adult) ordered Appointment Tom Aggarwal Jr BOOKED Appointment Tom Aggarwal Jr BOOKED Appointment Tom Aggarwal Jr BOOKED Appointment Tom Aggarwal Jr BOOKED Appointment Tom Aggarwal Jr BOOKED Appointment Tom Aggarwal Jr BOOKED History Of Present Illness Encounter Date Complaint History Of Prese nt Illness No Information Functional Status Date Functional Assessmen t No Information Instructions Date Instruction Additional Infor mation Patient education booklet given Related to Chronic venous hypertension (idiopathic) without complications of bilateral lower extremity Pre and post instruc tions reviewed and provided Related to Chronic venous hypertension (idiopathic) without complications of bilateral lower extremity Diet education Related to Body mass index (BMI) 25.0-25.9, adult Giving Encouragement to exercise Related to Body mass index (BMI) 25.0-25.9, adult Lifestyle education Related to B violette mass index (BMI) 25.0-25.9, adult Assessments Type Assessment Date No Information Patient Care Teams Name Effective Dates (start - stop) Status Members No Information
--- OUTSIDE RECORDS SUMMARY | 2024-12-22 13:03 | XMS_ITS | Clinical Summary ---
Author Organization [employer] Address [address] [place] [address] Care Team Providers Care Hadoop Architect Name Role Phone Unavailable Primary Care Provider [...] FOBT 1965 Lipid Panel 1965 Sigmoidoscopy 1965 Disability Screening 1967 Alcohol/Substance Use Screening 1979 Tobacco Screening 1979 DTaP/Tdap/Td Vaccines (1 - Tdap) 10/31/1986 Hepatitis B Vaccines (1 of 3 - 19+ 3-dose series) 10/31/1986 Pneumococcal Vaccine: 50+ Ye ars (1 of 1 - PCV) 10/31/2017 Zoster Vaccines (1 of 2) 10/31/2017 COVID-19 Vaccine ( - 2023-2 5 season) 2024 Influenza Vaccine (Season Ended) 2025 RSV Patients and Pa tients Aged 60 [...] patient's age to complete this topic Meningococcal B Vaccine Aged Out No l onger eligible based on patient's age to complete [...]
[2024-12-22 13:30] LABS: Hematocrit 41.6 % (42.0-52.0); Hemoglobin 14.5 g/dl (14.0-18.0); Mean Corpuscular HGB Conc 34.9 g/dl (31.0-36.0); Mean Corpuscular Hemoglobin 29.5 pg (27.0-33.0); Mean Corpuscular Volume 84.7 fL (80.0-98.0); NRBC Abs Auto 0.000 X10*3/uL (0.0-0.012); NRBC Pct Auto 0.0 /100WBC (0.0-0.2); Platelet Count 191 X10*3/uL (160-400); Red Blood Count 4.91 X10*6/uL (4.60-5.80); White Blood Count 5.3 X10*3/uL (4.8-10.8)
[2024-12-22 14:24] LABS: Alanine Aminotransferase 23 U/L (0-40); Albumin Level 4.7 g/dL (3.5-5.0); Alkaline Phosphatase 66 U/L (39-117); Anion Gap 13 (12-20); Aspartate Amino Transferase 24 U/L (5-37); Blood Urea Nitrogen 16 mg/dL (9-16); Calcium 9.2 mg/dL (8.4-10.2); Carbon Dioxide 25 mmol/L (22-29); Chloride 105 mmol/L (96-108); Cholesterol 223 mg/dL (<200); Estimated Glomerular Filt Rate > 60; HDL Cholesterol 61 mg/dL (>40); Potassium 4.0 mmol/L (3.3-5.1); Sodium 139 mmol/L (135-145); Total Protein 7.2 g/dL (6.5-8.0); Triglycerides 58 mg/dL (<150)
== END 2024-12-22 11:53 | disposition home or self-care (01) ==
LOC: HO.10HDL 11:52
PROVIDERS: Visit Provider Physician Assistant
DX: Z00.00 Encounter for general adult medical examination without abnormal findings (principal); I10 Essential (primary) hypertension; E78.2 Mixed hyperlipidemia
CPT/HCPCS: 36415; 80053; 80061; 82570; 85027; 96127

== ENCOUNTER 2024-12-22 12:59 | Outpatient (AMB) | payer OTHER, SELFPAY ==
--- NOTE | 2024-12-22 13:11 | A.OFFPC_ITS ---
Vital Signs 12/22/24 13:13 Height 5 ft 8 in Weight 160 lb 6 oz BMI 24.4 BP 136/90 H Blood Pressure Location Lt brachial Position Sitting Pulse 86 Pulse Source Pulse Oximeter Temp 97.5 F Temp Source Temporal Artery Scan Pulse Oximetry (%) 96 Oxygen Delivery Method Room Air Intake Visit Reasons: PE Computer Aide Required: No Accompanied by: Self / Same As Patient Allergies bee pollen (bee stings) Allergy (Unknown, Verified 12/22/24 13:30) Unknown Medication List - Last Reconciled 12/22/24 by Jair Hammond PA-C bupropion HCl XL (Wellbutrin XL) 300 mg PO QAM lisinopril 5 mg (1/2 x 10 mg) PO DAILY 90 days Tobacco use date assessed: 06/29/24 Dental Screening Dental Screen Date: 12/22/24 Did you have a dental visit in the last 12 months?: No Did you have a dental problem in the last 6 months where you did not have access to dental care?: No HPI PE HPI Details Tom is a 59-year-old male? here today for a routine annual physical. Patient has past medical history of hypertension, anxiety, HLD. ?? Hyperlipidemia:? Most recent lipid panel has significantly improved He does report having family members with elevated cholesterol. Plan: Continue with lifestyle and dietary modifications ? . ? .. ? HTN:? Patient's blood pressure acceptable today in office. Again has been working on lifestyle and dietary modifications. Reports that home blood pressures have been stable 120s to 130 systolic. ?He denies any headaches chest pain, shortness of breath, dizziness. Blood pressure today acceptable. ? .. ? Anxiety:? Continues with the use of Wellbutrin for his anxiety. Continues to follow with psychiatrist. Colonoscopy:? Colonoscopy done in 2024- 2 polyps tubular adenoma found - repeat 5 years vaccine: UTD with COVID Vaccine and TDap, considering shingles PFSH Medical History Anxiety Elevated cholesterol HTN (hypertension) Surgical History Hx of arthroscopy of left knee Hx of bilateral inguinal hernia repair H/O colonoscopy History of vascular surgery History of nasal surgery Family History Father Hypertension Hyperlipidemia Colon cancer Mother Hypertension Hyperlipidemia Diabetes Maternal Grandmother CAD (coronary artery disease) Social History Household Members Other:: daughter Housing: House Are you a primary care information associate to a significant other at home: No Do you presently have visiting nurse or other home services: No Alcohol intake: former Patient Tobacco Use Status: Former Tobacco user e-Cigarette/Vaping Use: Never Used Second Hand Smoke Exposure: No service: No Current occupational status: employed 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 1. Little interest or pleasure in doing things: not at all 2. Feeling down, depressed, or hopeless: not at all 3. Trouble falling or staying asleep, or sleeping too much: not at all 4. Feeling tired or having little energy: not at all 5. Poor appetite or overeating: not at all 6. Feeling bad about yourself - or that you are a failure or have let yourself or your family down: not at all 7. Trouble concentrating on things, such as reading the newspaper or watching television: not at all 8. Moving or speaking so slowly that other people could have noticed. Or the opposite - being so fidgety or restless that you have been moving around a lot more than usual: not at all 9. Thoughts that you would be better off or of hurting yourself in some way: not at all Total score: 0 Depression Screening Interpretation: Negative Depression Screening Done: Yes 43712 - PHQ-9 Billing: Yes Source: Developed by Drs. Tom Osorio, Farida Estes, Chris Bain and colleagues, with an educational cesar from [employer]. Thrive Questionnaire Date Thrive assessed: 12/22/24 I am a: Patient What is your living situation today?: I have a steady place to live Within the past 12 months, did the food you bought not last and you didn't have the money to get more?: Never true Within the past 12 months, did you worry whether your food would run out before you got money to buy more?: Never true Do you have trouble paying for medicines?: No Do you have trouble getting transportation to medical appointments?: No Do you have trouble paying your heating and electricity bill?: No Do you have trouble taking care of your child, family member or friend?: No Do you have trouble with day-to-day activities such as bathing, preparing meals, shopping, managing finances, etc.?: No Are you currently unemployed and looking for a job?: No Are you interested in more education?: Yes Please select the resources that you would like help with: None Currently or been in a relationship where the following occur: I choose not to answer THRIVE Score: 0 AUDIT C Alcohol Use Questionnaire (AUDIT-C) 1. How often do you have a drink containing alcohol?: Never Total Score: 0 KYAW-7 AMB Questionnaire KYAW-7 Date KYAW - 7 assessed: 12/22/24 Feeling nervous, anxious, or on edge: 0 = Not at all Not being able to stop or control worryin = Not at all Worrying too much about different things: 0 = Not at all Trouble relaxin = Not at all Being so restless that it is hard to sit still: 0 = Not at all Becoming easily annoyed or irritable: 0 = Not at all Feeling afraid as if something awful might happen: 0 = Not at all Total KYAW-7 score (0-4 normal; 5-9 mild; 10-14 moderate; 15-21 severe): 0 Source: Developed by Drs. Tom Osorio, Farida Estes, Chris Bain and colleagues, with an educational cesar from [employer]. KYAW-7 Assessment Billing KYAW-7 Assessment Tool: KYAW-7 Assessment 17764 Review of Systems Const Denies body aches, Denies chills, Denies excessive sweating, Denies fatigue, Denies fever(s) and Denies headache(s) Eyes Denies blurry vision ENT Denies dysphagia, Denies vertigo, Denies dizziness, Denies headache(s), Denies hearing loss and Denies tinnitus Card Denies chest pain, Denies chest pain with activity, Denies syncope, Denies irregular heart rhythm and Denies dyspnea Resp Denies chest congestion, Denies cough, Denies hemoptysis, Denies dyspnea and Denies wheezing GI Denies abdominal pain, Denies melena, Denies hematochezia, Denies coffee ground emesis, Denies dysphagia, Denies diarrhea, Denies nausea and Denies vomiting Denies difficulty urinating, Denies dysuria, Denies urinary frequency, Denies urinary hesitancy and Denies urinary urgency Musc Denies arthralgias, Denies limited range of motion, Denies muscle cramps and Denies muscle weakness Skin/Breast Denies rash and Denies skin ulcer Neuro Denies Abnormal speech present, Denies confusion, Denies vertigo, Denies dizziness, Denies syncope, Denies headache(s), Denies memory loss and Denies seizure-like activity Psych Denies anxiety, Denies confusion, Denies depression, Denies memory loss, Denies panic attacks and Denies paranoia Endo Denies excessive sweating, Denies fatigue, Denies flushing, Denies polydipsia and Denies polyuria Aller/Immun Denies wheezing Physical exam (Primary Care) Vital Signs: Last Vital Signs Temp 97.5 F 12/22/24 13:13 Pulse 86 12/22/24 13:13 BP 136/90 H 12/22/24 13:13 Pulse Ox 96 12/22/24 13:13 Oxygen Delivery Method Room Air 12/22/24 13:13 BMI result Body Mass Index 24.4 Tobacco/Smoking Status: Tobacco use Status Tobacco use date assessed 06/29/24 12/22/24 13:21 Patient Tobacco Use Status Former Tobacco user 12/22/24 13:21 e-Cigarette/Vaping Use Never Used 12/22/24 13:21 PHQ-9: PHQ-9 Score PHQ-9: Total score 0 12/22/24 13:21 Depression Screening Interpretation: Negative Thrive Assessment: Date of Thrive Assessment Date Thrive assessed 12/22/24 12/22/24 13:21 Currently or been in a relationship where the following occur: I choose not to answer Const General: cooperative, comfortable, no acute distress, alert and awake; No confusion Orientation/consciousness: oriented to person, oriented to place, patient oriented x3 and No confusion HENMT Head: Yes normocephalic Ears: external ears normal and TM's normal bilaterally Face and sinus: No sinus tenderness Mouth: Normal oral and palatal mucosa present and tongue normal Teeth and gingiva: dentition normal and gingiva normal Throat: Yes posterior oropharynx normal, Yes tonsils normal and Yes uvula midline Eyes Conjunctivae: conjunctivae normal Sclerae: sclerae normal Pupils: Equal, round and reactive pupils present EOM: EOMs intact bilaterally Direct Ophthalmoscopy: No no photophobia Neck Neck: Yes no lymphadenopathy, No tender and Yes no JVD Thyroid: Thyroid normal Carotids: no bruits Chest Chest palpation & inspection: no tenderness Resp Effort & Inspection: normal respiratory effort, no audible wheezes, not labored and no stridor Auscultation: no crackles, no rales, no rhonchi and no wheezes Cardio Jugular venous distension: no JVD Rate: regular rate, not bradycardic and not tachycardic Rhythm: regular rhythm Bruits: no carotid bruits Peripheral pulses: Peripheral pulses 2+ throughout GI Inspection: Yes normal to inspection, No abdominal wall ecchymosis and No visible herniation Palpation (GI): Soft to palpation, nontender, no guarding, not rigid and No hepatosplenomegaly present Auscultation: normoactive bowel sounds General: Yes no CVA tenderness Back/Spine/Pelvis Back: no CVA tenderness and No back tenderness Cervical Spine: cervical ROM normal Thoracic/Lumbar Spine: thoracic and lumbar spine normal to inspection, straight leg raise negative bilaterally, No thoraco-lumbar ROM limited and No lumbar spinal tenderness Skin Lesions: no lesions Rashes: no rashes Wounds: no wounds Neuro General: oriented to person, oriented to place, patient oriented x3, CN's II-XI intact bilaterally and No confusion Cranial nerves: Yes Equal, round and reactive pupils present and Yes Normal accommodation reflex present Cognition (Neuro): normal cognition Speech: No Abnormal speech present Gait exam (Neuro): Normal gait present Motor exam (neuro): 5/5 motor strength present throughout Extrem Right upper extremity: full ROM; no cyanosis Left upper extremity: full ROM; no cyanosis Right lower extremity: no edema Left lower extremity: no edema Psych Appearance: grossly normal Mental Status: mental status grossly normal Affect: normal affect Attitude: cooperative Thought process: Normal thought process present Coding Level of Care Code Est Pt Prev Care 40-64y(55379) Diagnoses Annual physical exam Z00.00 Essential hypertension I10 Hypertension type: essential hypertension Mixed hyperlipidemia E78.2 Hyperlipidemia type: mixed hyperlipidemia Additional Codes KYAW-7 Assessment Billing - KYAW-7 Assessment Tool: KYAW-7 Assessment 46853 ([id number]) PHQ-9 - 16099 - PHQ-9 Billing: Yes ([id number]) Assessment & Plan Assessment & Plan (1) Annual physical exam: Code(s): Z00.00 - Encounter for general adult medical examination without abnormal findings Category: Medical Plan: as per hPI (2) HTN (hypertension): Code(s): I10 - Essential (primary) hypertension Category: Medical Qualifiers: Hypertension type: essential hypertension Qualified Code(s): I10 - Essential (primary) hypertension Plan: Patient's blood pressure acceptable today in office. Will continue him on his current dose of lisinopril with goal blood pressure to remain below 140/90 (3) HLD (hyperlipidemia): Code(s): E78.5 - Hyperlipidemia, unspecified Category: Medical Qualifiers: Hyperlipidemia type: mixed hyperlipidemia Qualified Code(s): E78.2 - Mixed hyperlipidemia Plan: Patient's fasting lipid panel much improved since making changes in his diet and physical activity. Goal LDL to remain below 130 Medications: Refilled lisinopril 5 mg (1/2 x 10 mg) PO DAILY 45 tabs 1RF 90 days I10 - Essential (primary) hypertension Patient Instructions: Goal: Goal LDL to be below 130 Barriers: Adherence to healthy eating habits and physical activity
[2024-12-22 13:13] VITALS: BP 136/90; PULSE 86; TEMP 36.4; O2SAT 96; BMI 24.4
== END 2024-12-22 13:43 | disposition home or self-care (01) ==
LOC: HO.HMCH 13:00
PROVIDERS: PCP Physician Assistant; Visit Provider Physician Assistant
DX: Z00.00 Encounter for general adult medical examination without abnormal findings (principal); I10 Essential (primary) hypertension; E78.2 Mixed hyperlipidemia

== ENCOUNTER 2025-02-08 13:03 | Outpatient (AMB) | payer OTHER, SELFPAY ==
--- OUTSIDE RECORDS SUMMARY | 2024-11-09 06:30 | XMS_ITS ---
Author Organization [facility] Address [address] [place] [address] Care Team Providers Care Events Associate Name Role Phone Jair Hammond Primary Care Provider Unavailab Lary Schuler Unavailable [phone] REASON FOR VISIT screening Encounters Encounter Location Date Provider Diagnosis [facility] Outpatient [address] [place], [place] [phone] 11/09/2024 Lary Buckner Colon cancer scree sravanthi [...] LARY FARRIS WDOB:[birth year] (59 yo M)Acc No.[id number]:11/09/2024 COLON WITH MAC Patient: LARY ZAMORANO Provider: Neelam Buckner MD :1965 A ge:59 Y S ex:Male Date:11/09/2024 Address:[address] [place], [place] [phone] Pcp:Jair Hammond Subjective: * Chief Complaints: * [...] 5385 LESION REMOVAL COLONOSCOPY, Modifiers: PT , [address] COLONOSCOPY AND BIOPSY, Modifiers: 59 , PT * * The named appointment provid er may or may not be the originator of this progress note, and it is not deemed complete until electronically signed by the appointment provider. Sign off status: Pending * Provider: Neelam Buckner MD Date: 0 11/09/2024 Generated for Pearl mohan/Karlos/Aprilitting on: 0 02/08/2025 01:57 PM EDT
--- OUTSIDE RECORDS SUMMARY | 2025-01-05 07:15 | XMS_ITS | Continuity of Care Document ---
Author Organization [facility] Address [address] [place] [address] Phone Care Team Providers Care Alteration Inspector Name Role Phone Jose DARLING, RVT, RICCARDO, Tom Unavailable U navailable Allergies, Adverse Reactions, Alerts Substance Reaction Status Criticality No Known Allergies Active No Inform ation Procedures Procedure Date Duplex Scan-extrem Veins; Uni/ CT & [place] J Inj Scleros Solut; Mx Veins 1- CT & MA J Ultrason Guidan Needle Bx-rad- CT & MA J Duplex Scan-extrem Veins; Uni/ CT & MA J ul Ultrason Guidan Needle Bx-rad- CT & MA J Inj Sclerosing Solution; Sngl- CT & MA J Duplex Scan-extrem Veins; Uni/ CT & MA J Varithena, Single Truncal Vein - CT & MA Office/Oupt E&M New Pt 30 Mins- CT & MA Surgical Stockings CVR Reveal Knee High - Duplex Scan-extrem Veins; Comp- CT & MA Advance Directives Directive Yes / No Effective Date File Name No Information Encounters Encounter Description Practice Location Reason(s) For Visit Diagnoses Date Provider Providers Copied on Encounter [facility], [address], [place], [id number], [place] tel:[phone] [facility] - [facility] Encounter for follow-up examination after completed treatment for conditions other than malignant neoplasmChroni c venous hypertension (idiopathic) with other complications of left lower extremity 5 Jose DARLING RVT, RPVI Robert. [address] [place] [address], Suite [facility], [facility] [place], [id number], [place]. tel:[phone] Referring Provider: Jair Peters, [address] [place] [address], suite [facility], [place], [address]. tel:[phone] [facility], [address] [place] [address] [address], [id number], [place] tel:[phone] [facility] [place] [facility] [place] Varicose veins of left lower extremity with other complications 5 Jose DARLING RVT, RPVI Robert. [address] [place] [address], [place] [address], [facility] [place], [id number], [place]. tel:[phone] Referring Provider: Jair Peters, [address] [place] [address], [address], [place], [address]. tel:[phone] [facility], [address] [place] [address] [address] [place], [id number], [place] tel:[phone] [facility] - [place] Encounter for follow-up examination after completed treatment for conditions other than malignant nePain in right lower leg 5 Jose DARLING RVT, RPVI Robert. [address] [place] [address], [place] [address], [facility] [place], [id number], [place]. tel:[phone] Referring Provider: Jair Peters, [address] [place] [address], [address], [place], [address]. tel:[phone] [facility], [address] [place] [address] [address] [place], [id number], [place] tel:[phone] [facility] [place] Varicose veins of right lower extremity with other complications 5 Jose DARLING RVT, RPVI Robert. [address] [place] [address], [address], [place], [place], [id number], [place]. tel:[phone] Referring Provider: Jair Peters, [address] [place] [address], [address], [place], [address]. tel:[phone] [facility] [place], [address] [place] [address] [address], [id number], [place] tel:[phone] [facility] - [facility] Encounter for follow-up examination after completed treatment for conditions other than malignant neoplasmChroni c venous hypertension (idiopathic) with other complications of right lower extremity 5 Shyanne Nunez. [address] [facility], [address], [place], [place], [id number], [place]. tel:[phone] Referring Provider: Jair Peters, [facility], suite [facility], [place], [address]. tel:[phone] [facility] [place], [address] [place] [address] [address] [place], [id number], [place] tel:[phone] [facility] Varicose veins of right lower extremity with other complications 5 Jose DARLING, GREGORY, RICCARDO Santos. [facility] [place] [address], [place], [place], [id number], [place]. tel:[phone] Referring Provider: Jair Peters, [address] [place] [address], [address], [place], [address]. tel:[phone] [facility], [address] [place] [address] [address] [place], [id number], [place] tel:[phone] [facility] No Information 5 Jose DARLING RVT, RICCARDO Santos. [address] [facility] [address], [place], [place], [id number], [place]. tel:[phone] Office/Oupt E&M New Pt 30 Mins- CT & [place] [facility] [place], [address] [place] [address] [address] [place], [id number], [place] tel:[phone] [facility] Chronic venous hypertension (idiopathic) without complications of bilateral lower extremityRestl ess legs syndromeEssent ial (primary) hypertensionVe nous insufficiency (chronic) (peripheral)Cr amp and spasmLocalized edema 5 Jose DARLING RVT, RICCARDO Santos. [address] [facility], [address], [place], [place], [id number], [place]. tel:[phone] [facility], [address] [place] [address] [address], [place], [id number], [place] tel:[phone] [facility] venous hypertension (idiopathic) with other complications of bilateral lower extremity 5 Jose DARLING RVT, RICCARDO Santos. [address] [facility] [address], [facility] [place], [id number], [place]. tel:[phone] Referring Provider: Jair Peters, [address], [address], [place], [address]. tel:[phone] Family History Family Member Type Diagnosis Age At Onset No Information Payers Payer name Insurance type Covered green party ID Rosalio deng(s) [facility] CI [id number] Social History Type Description Quantity Date Captured Comments Sex Male Smoking Status No Information Chief Complaint And Reason For Visit No Information Reason For Referral Reason For Referral No Information Plan Of Treatment Date Type Action Status Goal Diet education completed Goal Tobacco cessation counseling completed Referral Ordered: Weight management: Referral to physician timeframe: 3 Months (related to Body mass index (BMI) 25.0-25.9, adult) ordered Appointment Tom Aggarwal Jr BOOKED Appointment Tom Aggarwal Jr BOOKED History Of Present Illness Encounter Date Complaint History Of Prese nt Illness No Information Functional Status Date Functional Assessmen t No Information Instructions Date Instruction Additional Infor mation Diet education Related to Body mass index (BMI) 25.0-25.9, adult Giving Encouragement to exercise Related to Body mass index (BMI) 25.0-25.9, adult Lifestyle education Related to B violette mass index (BMI) 25.0-25.9, adult Pre and post instruc tions reviewed and provided Related to Chronic venous hypertension (idiopathic) without complications of bilateral lower extremity Patient education booklet given Related to Chronic venous hypertension (idiopathic) without complications of bilateral lower extremity Assessments Type Assessment Date No Information Patient Care Teams Name Effective Dates (start - stop) Status Members No Information
== END 2025-02-08 13:14 | disposition home or self-care (01) ==
LOC: HO.HMGAL 13:03
PROVIDERS: PCP Physician Assistant; Visit Provider Registered Nurse Emergency
DX: J30.89 Other allergic rhinitis (principal)
CPT/HCPCS: 95117; 95165

== ENCOUNTER 2025-03-08 11:41 | Outpatient (AMB) | payer OTHER, SELFPAY ==
--- OUTSIDE RECORDS SUMMARY | 2024-04-24 10:40 | XMS_ITS ---
Author Organization [facility] Address [address] [place] [address] Care Team Providers Care Clutch Rebuilder Name Role Phone Jair Hammond Primary Care Provider Unavailab Lary Schuler Unavailable [phone] REASON FOR VISIT Patient presents today for a colon screening Encounters Encounter Location Date Provider Diagnosis [facility] [address] [facility] [address] [place] [address] 04/24/2024 Lary Buckner Plan Of Treatment No Information Progress Notes * KALEIGHLARY WDOB:[birth year] (59 yo M)Acc No.[id number]:04/24/2024 Progress Notes Patient: LARY ZAMORANO Provider: Neelam Buckner MD :1965 A ge:58 Y S ex:Male Date:04/24/2024 Address:[address] [place], [place] [id number] Pcp:Jair Hammond Subjective: * Chief Complaints: * [...] Neelam Buckner MD Date: 06/24/2023 Generated for Printi ng/Faxing/eTransmitting on: 0 03/08/2025 04:12 PM EDT
--- OUTSIDE RECORDS SUMMARY | 2024-11-09 06:30 | XMS_ITS ---
Author Organization [facility] Address [address] [place] [address] Care Team Providers Care Chain Builder Name Role Phone Jair Hammond Primary Care Provider Unavailab Lary Schuler Unavailable [phone] REASON FOR VISIT screening Encounters Encounter Location Date Provider Diagnosis [facility] [place] Outpatient [address] [place], [place] [phone] 11/09/2024 Lary Buckner Colon cancer scree sravanthi [...] LARY FARRIS WDOB:[birth year] (59 yo M)Acc No.[id number]:11/09/2024 COLON WITH MAC Patient: LARY ZAMORANO Provider: Neelam Buckner MD :1965 A ge:59 Y S ex:Male Date:11/09/2024 Address:[address] [place], [place] [phone] Pcp:Jair Hammond Subjective: * Chief Complaints: * [...] 5385 LESION REMOVAL COLONOSCOPY, Modifiers: PT , [address] COLONOSCOPY AND BIOPSY, Modifiers: 59 , PT * * The named appointment provid er may or may not be the originator of this progress note, and it is not deemed complete until electronically signed by the appointment provider. Sign off status: Pending * Provider: Neelam Buckner MD Date: 0 11/09/2024 Generated for Pearl mohan/Karlos/Aprilitting on: 0 03/08/2025 04:12 PM EDT
--- OUTSIDE RECORDS SUMMARY | 2025-03-08 16:12 | XMS_ITS | Clinical Summary ---
Author Organization [employer] Address [address] [facility] [facility] 7[address] [place] [address] Care Team Providers Care Financial Institution Treasurer Name Role Phone Unavailable Primary Care Provider [...] Vaccines (1 of 2) 10/31/2017 COVID-19 Vaccine (1 - 2023-2 5 season) 2025 Influenza Vaccine (#1) 2025 RSV Patients and Pa tients Aged [...]
--- OUTSIDE RECORDS SUMMARY | 2025-03-08 16:12 | XMS_ITS | Encounter Summary ---
Author Organization [employer] Address [address] [facility] 7 [place] [address] Care Team Providers Care Distance Learning Program Coordinator Name Role Phone Unavailable Primary Care Provider [...]
--- OUTSIDE RECORDS SUMMARY | 2025-03-08 16:12 | XMS_ITS | Patient Health Record ---
Author Organization [facility] Address [address] [place] [address] Care Team Providers Care Fountain Vending Mechanic Name Role Phone Jair Hammond Primary Care Provider Unavailab Lary Schuler Unavailable [phone] Allergies No Known Allergies Results Component Value Reference Range Notes Pathology (Not yet reviewed by provider) Interpretation: Performing Lab:[facility], [address] [place] [id number] Notes/Report: Reason For Referral No Information Medications Medication [...] Problem Status W/U Status Risk Notes Problem [id number] Encounter for screening for malignant neoplasm of colon (Z12.11) Active confirmed Problem [id number] Preprocedural examination (Z01.818) Active confirmed Problem [id number] Family history o f colon cancer (Z80.0) Active confirmed Vital Signs Temperature 97.7 degrees Fahrenheit 07/31/2024 Blood pressure diastolic 00 mm Hg 07/31/2024 Height 68 in 07/31/2024 Blood pressure systolic 000 mm Hg 07/31/2024 Weight 163 lbs 07/31/2024 BMI 24.78 kg/m2 07/31/2024 Encounters Encounter Location Date Provider Diagnosis [facility] Outpatient [address] [place] [phone] 11/09/2024 Lary Buckner Colon cancer screeni ng Z12.11 ; Adenomatous polyp of cecum D12.0 ; Adenoma of transverse colon D12.3 and Diverticulosis of large intestine without perforation or abscess without bleeding K57.30 [facility] [address] [place] [phone] 07/31/2024 Lary Buckner Encounter for screen ing for malignant neoplasm of colon Z12.11 ; Preprocedural examination Z01.818 and Family history of colon cancer Z80.0 [facility] [address] [place] [phone] 04/20/2024 Lary Buckner [facility] [address] [place] [phone] 10/05/2024 Lary Buckner Assessments Encounter Date Diagnosis (ICD Code) Assessment Notes Treatment Notes Treatment Clinical Notes Section Notes 11/09/2024 Colon cancer screening (ICD-10 - Z12.11) 11/09/2024 Adenomatous polyp of cecum (ICD-10 - D12.0) 07/31/2024 Encounter for screening for malignant neoplasm [...] to keep you advised of his progress. 11/09/2024 Adenoma of transverse colon (ICD-10 - D12.3) 07/31/2024 Family history of colon cancer (ICD-10 [...] to keep you advised of his progress. 11/09/2024 Diverticulosis of large intestine without perforation or abscess without bleeding (ICD-10 - K57.30) Plan Of Treatment Pending Test Test Name Order Date Pathology 11/09/2024 Future Test Test Name Order Date COLONOSCOPY 03/01/2017 COLONOSCOPY 07/31/2024 Insurance Providers Payer Name Payer Address Payer Phone Subscriber Number Group Number Insured Name Patient Relationship to Insured Coverage Start Date Coverage End Date [employer] [address] [address] [place] [address] [phone] [id number] LARY FARRIS Self - patient is the insured Medical (General) History Medical History History ICD Code Hypertension Denies AL,DM,CVA,Lung disease,renal dise ase Depression Negative screening colonoscopy in 7 Surgical History Surgery Date(Month/Year) Left knee arthroscopy 1991 Bilateral inguinal hernias as a child
== END 2025-03-08 11:42 | disposition home or self-care (01) ==
LOC: HO.HMGAL 11:41
PROVIDERS: PCP Physician Assistant; Visit Provider Registered Nurse Emergency
DX: J30.89 Other allergic rhinitis (principal)
CPT/HCPCS: 95117; 95165

== ENCOUNTER 2025-03-15 15:25 | Outpatient (AMB) | payer OTHER, SELFPAY ==
--- OUTSIDE RECORDS SUMMARY | 2025-03-15 17:51 | XMS_ITS | Clinical Summary ---
Author Organization [employer] Address [address] [place] [address] [address] Floor
== END 2025-03-15 15:28 | disposition home or self-care (01) ==
LOC: HO.HMGAL 15:25
PROVIDERS: PCP Physician Assistant; Visit Provider Registered Nurse Emergency
DX: J30.89 Other allergic rhinitis (principal)
CPT/HCPCS: 95117; 95165

== ENCOUNTER 2025-04-07 16:13 | Outpatient (AMB) | payer OTHER, SELFPAY ==
--- OUTSIDE RECORDS SUMMARY | 2024-04-24 10:40 | XMS_ITS ---
Author Organization [facility] Address [address] [place] [address] Care Team Providers Care Planer Setter Name Role Phone Jair Hammond Primary Care Provider Unavailab Lary Schuler Unavailable [phone] REASON FOR VISIT Patient presents today for a colon screening Encounters Encounter Location Date Provider Diagnosis [facility] [address] [facility] [address] [place] [address] 04/24/2024 Lary Buckner Plan Of Treatment No Information Progress Notes * KALEIGHLARY WDOB:[birth year] (59 yo M)Acc No.[id number]:04/24/2024 Progress Notes Patient: LARY ZAMORANO Provider: Neelam Buckner MD :1965 A ge:58 Y S ex:Male Date:04/24/2024 Address:[address] [place], [place] [id number] Pcp:Jair Hammond Subjective: * Chief Complaints: * [...] Date: 06/24/2023 Generated for Kimi ng/Fakarig/eTransmitting on: 07:21 PM EDT
--- OUTSIDE RECORDS SUMMARY | 2024-11-09 06:30 | XMS_ITS ---
Author Organization [facility] Address [address] [place] [address] Care Team Providers Care International Guest Coordinator Name Role Phone Jair Hammond Primary Care Provider Unavailab Lary Schuler Unavailable [phone] REASON FOR VISIT screening Encounters Encounter Location Date Provider Diagnosis [facility] Outpatient [address] [place], [place] [phone] 11/09/2024 Lary Buckner Colon cancer scree sravanthi [...] LARY FARRIS WDOB:[birth year] (59 yo M)Acc No.[id number]:11/09/2024 COLON WITH MAC Patient: LARY ZAMORANO Provider: Neelam Buckner MD :1965 A ge:59 Y S ex:Male Date:11/09/2024 Address:[address] [place], [place] [phone] Pcp:Jair Hammond Subjective: * Chief Complaints: * [...] 5385 LESION REMOVAL COLONOSCOPY, Modifiers: PT , 28485 COLONOSCOPY AND BIOPSY, Modifiers: 59 , PT * * The named appointment provid er may or may not be the originator of this progress note, and it is not deemed complete until electronically signed by the appointment provider. Sign off status: Pending * Provider: Neelam Buckner MD Date: 0 11/09/2024 Generated for Pearl mohan/Karlos/Aprilitting on: 1 07:21 PM EDT
--- OUTSIDE RECORDS SUMMARY | 2025-04-07 19:21 | XMS_ITS | Clinical Summary ---
Author Organization [employer] Address [address] [facility] 7t [place] [address] Care Team Providers Care Funnel Setter Name Role Phone Unavailable Primary Care Provider [...]
--- OUTSIDE RECORDS SUMMARY | 2025-04-07 19:22 | XMS_ITS | Encounter Summary ---
Author Organization [employer] Address [address] [facility] 7 [place] [address] Care Team Providers Care Pick Up And Delivery Driver Name Role Phone Unavailable Primary Care Provider [...]
--- OUTSIDE RECORDS SUMMARY | 2025-04-07 19:22 | XMS_ITS | Patient Health Record ---
Author Organization [facility] Address [address] [place] [address] Care Team Providers Care Composite Science Teacher Name Role Phone Jair Hmamond Primary Care Provider Unavailab Lary Schuler Unavailable [phone] Allergies No Known Allergies Results Component Value Reference Range Notes Pathology (Not yet reviewed by provider) Interpretation: Performing Lab:[facility], [address] [place] [id number] Notes/Report: Reason For Referral No Information Medications [...] Problem Status W/U Status Risk Notes Problem Screening for malignant neoplasm of colon (631179731) Encounter for screening for malignant neoplasm of colon (Z12.11) Active confirmed Problem Preprocedural examination (835025879138886) Preprocedural examination (Z01.818) Active confirmed Problem Family History of Cancer of Colon (Situation) (230079958) Family history of colon cancer (Z80.0) Active confirmed Vital Signs Temperature 97.7 degrees Fahrenheit 07/31/2024 Blood pressure diastolic 00 mm Hg 07/31/2024 Height 68 in 07/31/2024 Blood pressure systolic 000 mm Hg 07/31/2024 Weight 163 lbs 07/31/2024 BMI 24.78 kg/m2 07/31/2024 Encounters Encounter Location Date Provider Diagnosis [facility] [address] [place] [id number] 11/09/2024 Lary Buckner Colon cancer screeni ng Z12.11 ; Adenomatous polyp of cecum D12.0 ; Adenoma of transverse colon D12.3 and Diverticulosis of large intestine without perforation or abscess without bleeding K57.30 [facility] [address] [place] [phone] 07/31/2024 Lary Buckner Encounter for screen ing for malignant neoplasm of colon Z12.11 ; Preprocedural examination Z01.818 and Family history of colon cancer Z80.0 [facility] [address] [place] [phone] 04/20/2024 Lary Buckner [facility] [address] [phone] 10/05/2024 Lary Buckner Assessments Encounter Date Diagnosis [...] Date [employer] [address] [address] [place] [address] [id number] KALEIGHLARY Self - patient is the insured Medical (General) History Medical History History ICD Code Hypertension Denies [place],DM,CVA,Lung disease,renal dise ase Depression Negative screening colonoscopy in 7 Surgical History Surgery Date(Month/Year) Left knee arthroscopy 1990 Bilateral inguinal hernias as a child
== END 2025-04-07 16:14 | disposition home or self-care (01) ==
LOC: HO.HMGAL 16:13
PROVIDERS: PCP Physician Assistant; Visit Provider Registered Nurse Emergency
DX: J30.89 Other allergic rhinitis (principal)
CPT/HCPCS: 95117; 95165

== ENCOUNTER 2025-05-05 16:12 | Outpatient (AMB) | payer OTHER, SELFPAY ==
--- OUTSIDE RECORDS SUMMARY | 2024-04-24 09:40 | XMS_ITS ---
Author Organization [facility] Address [address] [place] [phone] Care Team Providers Care Case Sealer Name Role Phone Jair Hammond Primary Care Provider Unavailab Lary Schuler Unavailable [phone] REASON FOR VISIT Patient presents today for a colon screening Encounters Encounter Location Date Provider Diagnosis [facility] [address] [facility] [address] [place] [phone] 04/24/2024 Lary Buckner Plan Of Treatment No Information Progress Notes * KALEIGHLARY WDOB:[birth year] (59 yo M)Acc No.[id number]:04/24/2024 Progress Notes Patient: LARY ZAMORANO Provider: Neelam Buckner MD :1965 A ge:58 Y S ex:Male Date:04/24/2024 Address:[address] [place], [place] [id number] Pcp:Jair Hammond Subjective: * Chief Complaints: * 1 . Patient presents today for a colon screening. * Medical History: Objective: * Vitals: Assessment: Plan: * Treatment: * * The named appointment provid er may or may not be the originator of this progress note, and it is not deemed complete until electronically signed by the appointment provider. Sign off status: Pending * Provider: Neelam Buckner MD Date: 06/24/2023 Generated for Kimi ng/Fakarig/eTransmitting on: 07/05/2024 06:58 PM EST
--- OUTSIDE RECORDS SUMMARY | 2024-11-09 05:30 | XMS_ITS ---
Author Organization [facility] Address [address] [place] [address] Care Team Providers Care Cafe Operator Name Role Phone Jair Hammond Primary Care Provider Unavailab Lary Schuler Unavailable [phone] REASON FOR VISIT screening Encounters Encounter Location Date Provider Diagnosis [facility] Out[place] [address] [place], [place] [phone] 11/09/2024 Lary Buckner Colon cancer scree sravanthi [...] LARY FARRIS WDOB:[birth year] (59 yo M)Acc No.[id number]:11/09/2024 COLON WITH MAC Patient: LARY ZAMORANO Provider: Neelam Buckner MD :1965 A ge:59 Y S ex:Male Date:11/09/2024 Address:[address] [place], [place] [phone] Pcp:Jair Hammond Subjective: * Chief Complaints: * 1 . Screening. * Medical History: Objective: * Vitals: Assessment: * Assessment: 1. C olon cancer screening - Z12.11 (Primary) 2 . A denomatous polyp of cecum - D12.0 3 . A denoma of transverse colon - D12.3 4 . D iverticulosis of large intestine without perforation or abscess without bleeding - K57.30 ? Plan: * Treatment: * Procedure Codes: 4 5385 LESION REMOVAL COLONOSCOPY, Modifiers: [place] , [address] COLONOSCOPY AND BIOPSY, Modifiers: 59 , PT * * The named appointment provid er may or may not be the originator of this progress note, and it is not deemed complete until electronically signed by the appointment provider. Sign off status: Pending * Provider: Neelam Buckner MD Date: 0 11/09/2024 Generated for Pearl mohan/Karlos/Aprilitting on: 1 07/05/2024 06:58 PM EST
--- OUTSIDE RECORDS SUMMARY | 2025-05-04 06:30 | XMS_ITS | Continuity of Care Document ---
Author Organization [facility] Address [address] [place] [address] Phone Care Team Providers Care Associate Designer Name Role Phone Jose DARLING, GREGORY, RICCARDO, Tom Unavailable U navailable Allergies, Adverse Reactions, Alerts Substance Reaction Status Criticality No Known Allergies Active No Inform ation Procedures Procedure Date Ultrason Guidan Needle Bx-rad- CT & [place] N Inj Sclerosing Solution; Sngl- CT & [place] N Office/Outpt E&M Established 15 Mins- CT & [place] Duplex Scan-extrem Veins; Comp- CT & [place] Duplex Scan-extrem Veins; Uni/ CT & [place] J Inj Scleros Solut; Mx Veins 1- CT & [place] J Ultrason Guidan Needle Bx-rad- CT & [place] J Duplex Scan-extrem Veins; Uni/ CT & [place] J Ultrason Guidan Needle Bx-rad- CT & [place] J Inj Sclerosing Solution; Sngl- CT & [place] J Duplex Scan-extrem Veins; Uni/ CT & [place] J Varithena, Single Truncal Vein - CT & [place] Office/Oupt E&M New Pt 30 Mins- CT & [place] Surgical Stockings CVR Reveal Knee High 20-30 Duplex Scan-extrem Veins; Comp- CT & [place] Advance Directives Directive Yes / No Effective Date File Name No Information Encounters Encounter Description Practice Location Reason(s) For Visit Diagnoses Date Provider Providers Copied on Encounter [facility] MD TERRAZAS, [address] [place] [address] Dr Briggs 1000[place], [id number], [place] tel:[phone] CV[facility] - [place] [facility] [place] Varicose veins of left lower extremity with other complications 5 Jose DARLING RVT, RPVI Robert. [address] [place] [address], [place], [id number], [place]. tel:[phone] Referring Provider: Jair Peters, [address] [place] [address], [address], [place], [address]. tel:[phone] Office/Outpt E&M Established 15 Mins- CT & [place] [facility] MD TERRAZAS, [address] [place] [address] Dr Briggs 1000SuSanaz vega [place], [id number], [place] tel:[phone] [facility] - [place] Essential (primary) hypertensionVe nous insufficiency (chronic) (peripheral) 5 Jose DARLING RVT, RPVI Robert. [address] [place] [address], [place] [address], [facility] [place] [id number], [place]. tel:[phone] Referring Provider: Jair Peters, [address] [place] [address], [address], [place], [address]. tel:[phone] [facility] MD TERRAZAS, [address] [place] [address] Dr Briggs 1000[place]az [place], [id number], [place] tel:[phone] CVR - [facility] Varicose veins of bilateral lower extremities with pain 5 Jose DARLING RVT, RPVI Robert. [address] [place] [address], [facility] [address], [place], [id number], [place]. tel:[phone] Referring Provider: Jair Peters, [address] [place] [address], [address], [place], [address]. tel:[phone] [facility] MD TERRAZAS, [address] [place] [address] Dr Briggs 1000SuSanaz vega [place], [id number], [place] tel:[phone] CVR - [place] Encounter for follow-up examination after completed treatment for conditions other than malignant neoplasmChroni c venous hypertension (idiopathic) with other complications of left lower extremity 5 Jose DARLING RVT, RICCARDO Santos. [address] [facility], [address], [place], [place], [id number], [place]. tel:[phone] Referring Provider: Jair Peters, [address] [place] [address], [address], [place], [address]. tel:[phone] [facility], [address] [place] [address] Dr Briggs [address] 1000[place], [id number], [place] tel:[phone] CVR - [place] [facility] [place] Varicose veins of left lower extremity with other complications 5 Jose DARLING RVT, RICCARDO Santos. [address] [place] [address], [address], [place], [place], [id number], [place]. tel:[phone] Referring Provider: Jair Peters, [address] [place] [address], [address], [place], [address]. tel:[phone] [facility], [address] [place] [address] Dr Briggs 1000Suite [place], [id number], [place] tel:[phone] CVR - [place] [facility] [place] Encounter for follow-up examination after completed treatment for conditions other than malignant nePain in right lower leg 5 Jose DARLING RVT, RICCARDO Santos. [address] [facility], [address], [facility] [place], [id number], [place]. tel:[phone] Referring Provider: Jair Peters, [address] [place] [address], [address], [place], [address]. tel:[phone] [facility], [address] [place] [address] Dr Briggs [address], [id number], [place] tel:[phone] CVR - [place] Varicose veins of right lower extremity with other complications 5 Jose DARLING RVT, RICCARDO Santos. [address] [facility], [address], [place], [id number], [place]. tel:[phone] Referring Provider: Jair Peters, [address] [place] [address], [address], [place], [address]. tel:[phone] [facility], [address] [place] [address] [address], [id number], [place] tel:[phone] CVR - [facility] Encounter for follow-up examination after completed treatment for conditions other than malignant neoplasmChroni c venous hypertension (idiopathic) with other complications of right lower extremity 5 Shyanne Lyonsela. [address] [facility], [address], [place], [place], [id number], [place]. tel:[phone] Referring Provider: Jair Peters, [address] [place] [address], [address], [place], [address]. tel:[phone] [facility], [address] [place] [address] [address], [id number], [place] tel:[phone] CVR - [facility] Varicose veins of right lower extremity with other complications 5 Jose DARLING RVT, RICCARDO Santos. [address] [facility], [address], [place], [id number], [place]. tel:[phone] Referring Provider: Jair Peters, [address] [place] [address], [address], [place], [address]. tel:[phone] [facility], [address] [place] [address] Dr Briggs [address], [id number], [place] tel:[phone] CVR - [facility] No Information 5 Jose DARLING RVT, RICCARDO Santos. [address] [facility], [address], [place], [id number], [place]. tel:[phone] Office/Oupt E&M New Pt 30 Mins- CT & [place] [facility], [address] [place] [address] Dr Briggs 1000Suite [place], [id number], [place] tel:[phone] [facility] Chronic venous hypertension (idiopathic) without complications of bilateral lower extremityRestl ess legs syndromeEssent ial (primary) hypertensionVe nous insufficiency (chronic) (peripheral)Cr amp and spasmLocalized edema 5 Jose DARLING RVT, RICCARDO Santos. [address] [place] [address], [place], [place], [id number], [place]. tel:[phone] [facility], [address] [place] [address] Dr Briggs [address], [id number], [place] tel:[phone] [facility] Chronic venous hypertension (idiopathic) with other complications of bilateral lower extremity 5 Jose DARLING RVT, RICCARDO Santos. [address] [place] [address], [place], [place], [id number], [place]. tel:[phone] Referring Provider: Jair Peters, [address], [address], [place], [address]. tel:[phone] Family History Family Member Type Diagnosis Age At Onset No Information Payers Payer name Insurance type Covered democrat ID Authorhao deng(s) [facility] [id number] Social History Type Description Quantity Date Captured Comments Sex Male Smoking Status No Information Chief Complaint And Reason For Visit No Information Reason For Referral Reason For Referral No Information Plan Of Treatment Date Type Action Status Goal Tobacco cessation counseling completed Goal Diet education completed Goal Diet education completed Goal Tobacco cessation counseling completed Referral Ordered: Weight management: Referral to physician timeframe: 3 Months (related to Body mass index (BMI) 25.0-25.9, adult) ordered Referral Ordered: Weight management: Referral to physician timeframe: 3 Months (related to Body mass index (BMI) 25.0-25.9, adult) ordered Appointment Tom Aggarwal Jr BOOKED Appointment Tom Aggarwal Jr BOOKED Appointment Tom Aggarwal Jr BOOKED History Of Present Illness Encounter Date Complaint History Of Prese nt Illness No Information Functional Status Date Functional Assessmen t No Information Instructions Date Instruction Additional Infor fab Pre and post instruc tions reviewed and provided Related to Venous insufficiency (chronic) (peripheral) Patient education booklet given Related to Venous insufficiency (chronic) (peripheral) Lifestyle education Related to B violette mass index (BMI) 25.0-25.9, adult Giving Encouragement to exercise Related to Body mass index (BMI) 25.0-25.9, adult Diet education Related to Body mass index (BMI) 25.0-25.9, adult Lifestyle education Related to B violette mass index (BMI) 25.0-25.9, adult Giving Encouragement to exercise Related to Body mass index (BMI) 25.0-25.9, adult Diet education Related to Body mass index (BMI) 25.0-25.9, adult Pre and [...]
--- OUTSIDE RECORDS SUMMARY | 2025-05-05 18:59 | XMS_ITS | Clinical Summary ---
Author Organization [employer] Address [address] [facility] 7t [place] [address] Care Team Providers Care Biometrics Specialist Name Role Phone Unavailable Primary Care Provider [...]
--- OUTSIDE RECORDS SUMMARY | 2025-05-05 18:59 | XMS_ITS | Patient Health Record ---
Author Organization [facility] Address [address] [place] [address] Care Team Providers Care Ironworker Helper Shop Name Role Phone Jair Hammond Primary Care Provider Unavailab Lary Schuler Unavailable [phone] Allergies No Known Allergies Results Component Value Reference Range Notes Pathology (Not yet reviewed by provider) Interpretation: Performing Lab:[facility], [address] [place] [id number] Notes/Report: Reason For Referral No Information Medications [...] Problem Screening for malignant neoplasm of colon (704271152) Encounter for screening for malignant neoplasm of colon (Z12.11) Active confirmed Problem Preprocedural examination (307939066982069) Preprocedural examination (Z01.818) Active confirmed Problem Family History of Cancer of Colon (Situation) (756863430) Family history of colon cancer (Z80.0) Active confirmed Vital Signs Temperature 97.7 degrees Fahrenheit 07/31/2024 Blood pressure diastolic 00 mm Hg 07/31/2024 Height 68 in 07/31/2024 Blood pressure systolic 000 mm Hg 07/31/2024 Weight 163 lbs 07/31/2024 BMI 24.78 kg/m2 07/31/2024 Encounters Encounter Location Date Provider Diagnosis [facility] [address] [place] [id number] 11/09/2024 Lary Buckner Colon cancer screeni ng Z12.11 ; Adenomatous polyp of cecum D12.0 ; Adenoma of transverse colon D12.3 and Diverticulosis of large intestine without perforation or abscess without bleeding K57.30 [facility] [address] [place] [phone] 07/31/2024 Lary Buckner Encounter for screen ing for malignant neoplasm of colon Z12.11 ; Preprocedural examination Z01.818 and Family history of colon cancer Z80.0 [facility] [address] [facility] [address] [place] [phone] 10/05/2024 Lary Buckner Assessments Encounter Date Diagnosis [...] Date [employer] [address] [address] [place] [address] [phone] [id number] LARY FARRIS Self - patient is the insured Medical (General) History Medical History History ICD Code Hypertension Denies [place],DM,CVA,Lung disease,renal dise ase Depression Negative screening colonoscopy in 7 Surgical History Surgery Date(Month/Year) Left knee arthroscopy 1990 Bilateral inguinal hernias as a child
--- OUTSIDE RECORDS SUMMARY | 2025-05-05 18:59 | XMS_ITS | Encounter Summary ---
Author Organization [employer] Address [address] [facility] 7t [place] [address] Care Team Providers Care Tax Evaluator Name Role Phone Unavailable Primary Care Provider [...]
== END 2025-05-05 16:12 | disposition home or self-care (01) ==
LOC: HO.HMGAL 16:12
PROVIDERS: PCP Physician Assistant; Visit Provider Registered Nurse Emergency
DX: J30.89 Other allergic rhinitis (principal)
CPT/HCPCS: 95117; 95165

== ENCOUNTER 2025-05-12 15:47 | Outpatient (AMB) | payer OTHER, SELFPAY ==
--- OUTSIDE RECORDS SUMMARY | 2024-04-24 09:40 | XMS_ITS ---
Author Organization [facility] Address [address] [place] [id number] Care Team Providers Care Day Care Director Name Role Phone Jair Hammond Primary Care Provider Unavailab Lary Schuler Unavailable [phone] REASON FOR VISIT Patient presents today for a colon screening Encounters Encounter Location Date Provider Diagnosis [facility] [address] [facility] [address] [place] [phone] 04/24/2024 Lary Buckner Plan Of Treatment No Information Progress Notes * KALEIGHLARY WDOB:[birth year] (59 yo M)Acc No.[id number]:04/24/2024 Progress Notes Patient: LARY ZAMORANO Provider: Neelam Buckner MD :1965 A ge:58 Y S ex:Male Date:04/24/2024 Address:[address] [place], [place] [id number] Pcp:Jair Hammond Subjective: * Chief Complaints: * P atient presents today for a colon screening * The named appointment provid er may or may not be the originator of this progress note, and it is not deemed complete until electronically signed by the appointment provider. Sign off status: Pending * Provider: Neelam Buckner MD Date: 06/24/2023 Generated for Pearl mohan/Karlos/Aprilitting on: 07/13/2024 04:22 AM EST
--- OUTSIDE RECORDS SUMMARY | 2024-11-09 05:30 | XMS_ITS ---
Author Organization [facility] Address [address] [place] [address] Care Team Providers Care Lead Software Tester Name Role Phone Jair Hammond Primary Care Provider Unavailab Lary Schuler Unavailable [phone] REASON FOR VISIT screening Encounters Encounter Location Date Provider Diagnosis [facility] Outpatient [address] [place], [place] [phone] 11/09/2024 Lary Buckner Colon cancer scree sravanthi Z12.11 ; Adenomatous polyp of cecum D12.0 ; Adenoma of transverse colon D12.3 and Diverticulosis of large intestine without perforation or abscess without bleeding K57.30 Assessments Encounter Date Diagnosis (ICD Code) Assessment Notes Treatment Notes Treatment Clinical Notes Section Notes 11/09/2024 Colon cancer screening (ICD-10 - Z12.11) 11/09/2024 Adenomatous polyp of cecum (ICD-10 - D12.0) 11/09/2024 Adenoma of transverse colon (ICD-10 - D12.3) 11/09/2024 Diverticulosis of large intestine without perforation or abscess without bleeding (ICD-10 - K57.30) Plan Of Treatment No Information Progress Notes * LARY FARRIS WDOB:[birth year] (59 yo M)Acc No.[id number]:11/09/2024 COLON WITH MAC Patient: LARY ZAMORANO Provider: Neelam Buckner MD :1965 A ge:59 Y S ex:Male Date:11/09/2024 Address:[address] [place], [place] [id number] Pcp:Jair Hammond Subjective: * Chief Complaints: * S creening Assessment: * Assessment: 1. C olon cancer screening - Z12.11 (Primary) 2 . A denomatous polyp of cecum - D12.0 3 . A denoma of transverse colon - D12.3 4 . D iverticulosis of large intestine without perforation or abscess without bleeding - K57.30 ? Plan: * Procedure Codes: 4 5385 LESION REMOVAL COLONOSCOPY, Modifiers: [place] [address]11 COLONOSCOPY AND BIOPSY, Modifiers: 59 , PT Billing Information: * Procedure Codes: 22048 LESION REMOVAL [place]OS[place]: [place] [address] COLONOSCOPY AND BIOPSY. Modifiers: 59, PT * The named appointment provid er may or may not be the originator of this progress note, and it is not deemed complete until electronically signed by the appointment provider. Sign off status: Pending * Provider: Neelam Buckner MD Date: 0 11/09/2024 Generated for Pearl mohan/Karlos/Aprilitting on: 1 07/13/2024 04:22 AM EST
--- OUTSIDE RECORDS SUMMARY | 2025-05-13 04:22 | XMS_ITS | Clinical Summary ---
Author Organization [employer] Address [address] [facility] 7t [place] [address] Care Team Providers Care Cement Railroad Car Loader Name Role Phone Unavailable Primary Care Provider [...] of 2) 10/31/2017 COVID-19 Vaccine ( - 2024-2 6 season) 2025 Influenza Vaccine (#1) 2025 RSV [...]
--- OUTSIDE RECORDS SUMMARY | 2025-05-13 04:23 | XMS_ITS | Encounter Summary ---
Author Organization [employer] Address [address] [facility] 7t [place] [address] Care Team Providers Care Agriscience Instructor Name Role Phone Unavailable Primary Care Provider [...]
--- OUTSIDE RECORDS SUMMARY | 2025-05-13 04:23 | XMS_ITS | Patient Health Record ---
Author Organization [facility] Address [address] [place] [address] Care Team Providers Care Front Desk Team Member Name Role Phone Jair Hammond Primary Care Provider UnavailLary Carrion Unavailable [phone] Allergies No Known Allergies Results Component Value Reference Range Notes Pathology (Not yet reviewed by provider) Interpretation: Performing Lab:[facility], [address] [place] [id number] Notes/Report: Reason For Referral No Information Medications Medication SIG (Take, Route, Frequency, Duration) Notes Start Date End Date Status Wellbutrin XL 300 MG Tablet Extended Release 24 Hour 1 tablet in the morning Orally Once a day Active Lisinopril 10 MG Tablet 1 tablet Orally Once a day Active Immunizations Vaccine Route Administration Date Status Comme nts Influenza Unknown 03/17/2024 Administered Social History Tobacco Use: Social History Observation Description Date Details (start date - stop date) Former Smoker NA - NA Social History Drugs/Alcohol: Social Info Question Answer Notes Alcohol Screen Did you have a drink containing alcohol in the past year? Yes How often did you have a drink containing alcohol in the past year? 2 to 4 times a month (2 points) How many drinks did you have on a typical day when you were drinking in the past year? 1 or 2 drinks (0 point) How often did you have 6 or more drinks on one occasion in the past year? Never (0 point) Points 2 Interpretation Negative Tobacco Use: Social Info Question Answer Notes Tobacco Use/Smoking Patient is a former smoker How long has it been since you last smoked? > 10 years Additional Details Category Social Info Options Details Miscellaneous: Marital status: Occupation: meat counter worker--t ruckdriver Section Notes: Nonsmoker > 10 years; occ. a lcohol Nonsmoker > 10 years; occ. a lcohol Problems Problem Type SNOMED Code ICD Code Onset Dates Problem Status W/U Status Risk Notes Problem Screening for malignant neoplasm of colon (466680690) Encounter for screening for malignant neoplasm of colon (Z12.11) Active confirmed Problem Preprocedural examination (595320295777081) Preprocedural examination (Z01.818) Active confirmed Problem Family History of Cancer of Colon (Situation) (765353046) Family history of colon cancer (Z80.0) Active confirmed Vital Signs Temperature 97.7 degrees Fahrenheit 07/31/2024 Blood pressure diastolic 00 mm Hg 07/31/2024 Height 68 in 07/31/2024 Blood pressure systolic 000 mm Hg 07/31/2024 Weight 163 lbs 07/31/2024 BMI 24.78 kg/m2 07/31/2024 Encounters Encounter Location Date Provider Diagnosis [facility] Outpatient [address] [place] [id number] 11/09/2024 Lary Buckner Colon cancer screeni ng Z12.11 ; Adenomatous polyp of cecum D12.0 ; Adenoma of transverse colon D12.3 and Diverticulosis of large intestine without perforation or abscess without bleeding K57.30 [facility] [address] [place] [id number] 07/31/2024 Lary Buckner Encounter for screen ing for malignant neoplasm of colon Z12.11 ; Preprocedural examination Z01.818 and Family history of colon cancer Z80.0 [facility] [address] [facility] [address] [place] [phone] 10/05/2024 Lary Buckner Assessments Encounter Date Diagnosis [...] Date [employer] [address] [address] [place] [address] [id number] LARY FARRIS Self - patient is the insured Medical (General) History Medical History History ICD Code Hypertension Denies CA,DM,CVA,Lung disease,renal dise ase Depression Negative screening colonoscopy in 7 Surgical History Surgery Date(Month/Year) Left knee arthroscopy 1990 Bilateral inguinal hernias as a child
== END 2025-05-12 15:47 | disposition home or self-care (01) ==
LOC: HO.HMGAL 15:47
PROVIDERS: PCP Physician Assistant; Visit Provider Registered Nurse Emergency
DX: J30.89 Other allergic rhinitis (principal)
CPT/HCPCS: 95117; 95165

== ENCOUNTER 2025-05-24 16:13 | Outpatient (AMB) | payer OTHER, SELFPAY ==
--- OUTSIDE RECORDS SUMMARY | 2025-05-07 09:45 | XMS_ITS | Continuity of Care Document ---
Author Organization [facility] Address [address] [place] [address] Phone Care Team Providers Care Furnace Utility Operator Name Role Phone Jose DARLING, GREGORY, Tom GU Unavailable U navailable Allergies, Adverse Reactions, Alerts Substance Reaction Status Criticality No Known Allergies Active No Inform ation Procedures Procedure Date Duplex Scan-extrem Veins; Uni/ CT & [place] N Ultrason Guidan Needle Bx-rad- CT & MA [...] MA Surgical Stockings CVR Reveal Knee High 20- Duplex Scan-extrem Veins; Comp- CT & [place] Advance Directives Directive Yes / No Effective Date File Name No Information Encounters Encounter Description Practice Location Reason(s) For Visit Diagnoses Date Provider Providers Copied on Encounter [facility] MD TERRAZAS, [address] [place] [address] Dr Briggs [address], [id number], [place] tel:[phone] CV[place] - [place] - [place] Encounter for follow-up examination after completed treatment for conditions other than malignant neoplasmPain in left lower leg 5 Jose DARLING RVT, RICCARDO Santos. [address] [facility], [address], [place], [id number], [place]. tel:[phone] Referring Provider: Jair Peters, [address] [place] [address], [address], [place], [address]. tel:[phone] [facility] MD TERRAZAS, [address] [place] [address] Dr Briggs [address], [id number], [place] tel:[phone] CVR - [place] - [place] Varicose veins of left lower extremity with other complications 5 Jose DARLING RVT, RICCARDO Santos. [address] [place] [address], [address], [place], [id number], [place]. tel:[phone] Referring Provider: Jair Peters, [address] [place] [address], [address], [place], [address]. tel:[phone] Office/Outpt E&M Established 15 Mins- CT & [place] [facility] MD TERRAZAS, [address] [place] [address] Dr Briggs [address], [id number], [place] tel:[phone] CVR - [place] - [place] Essential (primary) hypertensionVe nous insufficiency (chronic) (peripheral) 5 Jose DARLING RVT, RICCARDO Santos. [address] [facility], [address], [place], [id number], [place]. tel:[phone] Referring Provider: Jair Peters, [address] [place] [address], [address], [place], [address]. tel:[phone] [facility], [address] [place] [address] Dr Briggs [address], [id number], [place] tel:[phone] CVR - [place] - [place] Varicose veins of bilateral lower extremities with pain 5 Jose DARLING RVT, RICCARDO Santos. [facility], [address], [facility] [place] [place] [id number], [place]. tel:[phone] Referring Provider: Jair Peters, [address] [place] [address], [address], [place], [address]. tel:[phone] [facility], [address] [place] [address] Dr Briggs 1000Suite [place], [id number], [place] tel:[phone] CVR - [place] Encounter for follow-up examination after completed treatment for conditions other than malignant neoplasmChroni c venous hypertension (idiopathic) with other complications of left lower extremity 5 Jose DARLING RVT, RICCARDO Santos. [address] [place] [address], [address], [facility] [place] [place], [id number], [place]. tel:[phone] Referring Provider: Jair Peters, [address] [place] [address], [address], [place], [address]. tel:[phone] [facility], [address] [place] [address] Dr Briggs 1000Suite [place], [id number], [place] tel:[phone] CVR - [place] - [place] Varicose veins of left lower extremity with other complications 5 Jose DARLING RVT, RICCARDO Santos. [address] [place] [address], [address], [facility] [place], [id number], [place]. tel:[phone] Referring Provider: Jair Peters, [address] [place] [address], [address], [place], [address]. tel:[phone] [facility], [address] [place] [address] Dr Briggs 1000Suite [place], [id number], [place] tel:[phone] CVR - [place] - [place] Encounter for follow-up examination after completed treatment for conditions other than malignant nePain in right lower leg 5 Jose DARLING RVT, RPVI Robert. [address] [place] [address], [place], [place], [id number], [place]. tel:[phone] Referring Provider: Jair Peters, [address] [place] [address], suite [facility], [place], [address]. tel:[phone] [facility], [address] [place] [address] Dr Briggs 1000[facility] [place], [id number], [place] tel:[phone] CVR - [place] - [place] Varicose veins of right lower extremity with other complications 5 Jose DARLING RVT, RICCARDO Santos. [address] [place] [address], [place], [place], [id number], [place]. tel:[phone] Referring Provider: Jair Peters, [address] [place] [address], suite [facility], [place], [address]. tel:[phone] [facility], [address] [place] [address] Dr Briggs 1000[facility] [place], [id number], [place] tel:[phone] CVR - [place] - [place] Encounter for follow-up examination after completed treatment for conditions other than malignant neoplasmChroni c venous hypertension (idiopathic) with other complications of right lower extremity 5 Shyanne Nunez. [address] [place] [address], [address], [place], [place], [id number], [place]. tel:[phone] Referring Provider: Jair Peters, [address] [place] [address], suite [facility], [place], [address]. tel:[phone] [facility], [address] [place] [address] Dr Briggs 1000SuSan[place] vega [place], [id number], [place] tel:[phone] CVR - [place] - [place] Varicose veins of right lower extremity with other complications 5 Jose DARLING RVT, RPVI Robert. [address] [place] [address], [address], [place], [id number], [place]. tel:[phone] Referring Provider: Jair Peters, [address], [address], [place], [address]. tel:[phone] [facility], [address] [place] [address] Dr Briggs 1000[address] 1000[place], [id number], [place] tel:[phone] CV - [facility] No Information 5 Jose DARLING RVT, RICCARDO Santos. [address] [place] [address] 302, [place], [id number], [place]. tel:[phone] Office/Oupt E&M New Pt 30 Mins- CT & [place] [facility], [address] [place] [address] Dr Briggs 1000[address] 1000[place], [id number], [place] tel:[phone] [facility] Chronic venous hypertension (idiopathic) without complications of bilateral lower extremityRestl ess legs syndromeEssent ial (primary) hypertensionVe nous insufficiency (chronic) (peripheral)Cr amp and spasmLocalized edema 5 Jose DARLING RVT, RICCARDO Santos. [address] [place] [address], [place], [id number], [place]. tel:[phone] [facility], [address] [place] [address] Dr Briggs [address] 1000[place], [id number], [place] tel:[phone] [facility] Chronic venous hypertension (idiopathic) with other complications of bilateral lower extremity 5 Jose DARLING RVT, RICCARDO Santos. [facility] [place] [address], [place], [id number], [place]. tel:[phone] Referring Provider: Jair Peters, [address], [address], [place], [address]. tel:[phone] Family History Family Member Type Diagnosis Age At Onset No Information Payers Payer name Insurance type Covered green party ID Rosalio deng(s) [facility] [id number] Social History Type Description Quantity Date Captured Comments Sex Male Smoking Status No Information Chief Complaint And Reason For Visit No Information Reason For Referral Reason For Referral No Information Plan Of Treatment Date Type Action Status Goal Diet education completed Goal Tobacco cessation counseling completed Goal Diet education completed Goal Tobacco [...] Information Instructions Date Instruction Additional Infor fab Diet education Related to Body mass index (BMI) 25.0-25.9, adult Giving Encouragement to exercise Related to Body mass index (BMI) 25.0-25.9, adult Lifestyle education Related to B violette mass index (BMI) 25.0-25.9, adult Patient education booklet given Related to Venous insufficiency (chronic) (peripheral) Pre and post instruc tions reviewed and provided Related to Venous insufficiency (chronic) (peripheral) Lifestyle [...]
--- OUTSIDE RECORDS SUMMARY | 2025-05-24 18:41 | XMS_ITS | Encounter Summary ---
Author Organization [employer] Address [address] [facility] 7t [place] [address] Care Team Providers Care Lamination Inspector Name Role Phone Unavailable Primary Care Provider [...]
--- OUTSIDE RECORDS SUMMARY | 2025-05-24 18:41 | XMS_ITS | Clinical Summary ---
Author Organization [employer] Address [address] [facility] 7t [place] [address] Care Team Providers Care Emergency Nurse Name Role Phone Unavailable Primary Care Provider [...]
== END 2025-05-24 16:13 | disposition home or self-care (01) ==
LOC: HO.HMGAL 16:13
PROVIDERS: PCP Physician Assistant; Visit Provider Registered Nurse Emergency
DX: J30.89 Other allergic rhinitis (principal)
CPT/HCPCS: 95117; 95165

== ENCOUNTER 2025-05-31 16:12 | Outpatient (AMB) | payer OTHER, SELFPAY ==
--- OUTSIDE RECORDS SUMMARY | 2024-11-09 05:30 | XMS_ITS ---
Author Organization [facility] Address [address] [place] [address] Care Team Providers Care Lead Teller Name Role Phone Jair Hammond Primary Care Provider Unavailab Lary Schuler Unavailable [phone] REASON FOR VISIT screening Encounters Encounter Location Date Provider Diagnosis [facility] Outpatient [address] [place], [place] [phone] 11/09/2024 Lary Buckner Colon cancer scree sravanthi [...] LARY FARRIS WDOB:[birth year] (59 yo M)Acc No.[id number]:11/09/2024 COLON WITH MAC Patient: LARY ZAMORANO Provider: Neelam Buckner MD :1965 A ge:59 Y S ex:Male Date:11/09/2024 Address:[address] [place], [place] [phone] Pcp:Jair Hammond Subjective: * Chief Complaints: * [...] 4 5385 LESION REMOVAL COLONOSCOPY, Modifiers: [place] [address] COLONOSCOPY AND BIOPSY, Modifiers: 59 , PT Billing Information: * Procedure Codes: 64080 LESION REMOVAL COLONOSCOPY. Modifiers: [place] [address] COLONOSCOPY AND BIOPSY. Modifiers: 59, PT * The named appointment provid er may or may not be the originator of this progress note, and it is not deemed complete until electronically signed by the appointment provider. Sign off status: Pending * Provider: Neelam Buckner MD Date: 0 11/09/2024 Generated for Pearl mohan/Karlos/Aprilitting on: 1 08/02/2024 01:42 AM EST
--- OUTSIDE RECORDS SUMMARY | 2025-05-07 09:45 | XMS_ITS | Continuity of Care Document ---
Author Organization [facility] Address [address] [place] [address] Phone Care Team Providers Care Esthetic Dermatologist Name Role Phone Jose DARLING, GREGORY, Tom [...] Providers Copied on [facility]counter [facility] [place] TERRAZAS, [address] [place] [address] Dr Briggs 1000[address] 1000[place], [id number], [place] tel:[phone] [place] Encounter for follow-up examination after completed treatment for conditions other than malignant neoplasmPain in left lower leg 5 Jose DARLING RVT, RICCARDO Santos. [address] [facility], [address], [place], [id number], [place]. tel:[phone] Referring Provider: Jair Peters, [address] [place] [address], [address], [place], [address]. tel:[phone] [facility] MD TERRAZAS, [address] [place] [address] Dr Briggs 1000[address] 1000[place], [id number], [place] tel:[phone] CVR - [place] Varicose veins of left lower extremity with other complications 5 Jose DARLING RVT, RICCAROD Santos. [address] [place] [address], [address], [place], [id number], [place]. tel:[phone] Referring Provider: Jair Peters, [address] [place] [address], [address], [place], [address]. tel:[phone] Office/Outpt E&M Established 15 Mins- CT & [place] [facility] MD TERRAZAS, [address] [place] [address] Dr Briggs 1000[address] 1000[place], [id number], [place] tel:[phone] CVR - [place] Essential (primary) hypertensionVe nous insufficiency (chronic) (peripheral) 5 Jose DARLING RVT, RICCARDO Santos. [address] [facility], [address], [place], [id number], [place]. tel:[phone] Referring Provider: Jair Peters, [address] [place] [address], [address], [place], [address]. tel:[phone] [facility], [address] [place] [address] Dr Briggs 1000[address] 1000[place], [id number], [place] tel:[phone] CVR [place] Varicose veins of bilateral lower extremities with pain 5 Jose DARLING RVT, RICCARDO Santos. [facility]0 [facility], [address], [facility] [place], [id number], [place]. tel:[phone] Referring Provider: Jair Peters, [address] [place] [address], [address], [place], [address]. tel:[phone] [facility], [address] [place] [address] Dr Briggs 1000Suite [place], [id number], [place] tel:[phone] CVR - [place] Encounter for follow-up examination after completed treatment for conditions other than malignant neoplasmChroni c venous hypertension (idiopathic) with other complications of left lower extremity 5 Jose DARLING RVT, RICCARDO Santos. [address] [place] [address], [address], [facility] [place] [place], [id number], [place]. tel:[phone] Referring Provider: Jair Peters, [address] [place] [address], [address], [place], [address]. tel:[phone] [facility], [address] [place] [address] Dr Briggs 1000Suite [place], [id number], [place] tel:[phone] CVR - [place] Varicose veins of left lower extremity with other complications 5 Jose DARLING RVT, RICCARDO Santos. [address] [place] [address], [address], [facility] [place] [place], [id number], [place]. tel:[phone] Referring Provider: Jair Peters, [address] [place] [address], [address], [place], [address]. tel:[phone] [facility], [address] [place] [address] Dr Briggs 1000Suite [place], [id number], [place] tel:[phone] CVR - [place] Encounter for follow-up examination after completed treatment for conditions other than malignant nePain in right lower leg 5 Jose DARLING RVT, RPVI Robert. [address] [place] [address], [place], [place], [id number], [place]. tel:[phone] Referring Provider: Jair Peters, [address] [place] [address], suite [facility], [place], [address]. tel:[phone] [facility], [address] [place] [address] Dr Briggs 1000[facility] [place], [id number], [place] tel:[phone] CVR - [place] Varicose veins of right lower extremity with other complications 5 Jose DARLING RVT, RICCARDO Santos. [address] [place] [address], [place], [place], [id number], [place]. tel:[phone] Referring Provider: Jair Peters, [address] [place] [address], suite [facility], [place], [address]. tel:[phone] [facility], [address] [place] [address] Dr Briggs 1000[facility] [place], [id number], [place] tel:[phone] CVR - [place] Encounter for follow-up examination after completed treatment for conditions other than malignant neoplasmChroni c venous hypertension (idiopathic) with other complications of right lower extremity 5 Shyanne Nunez. [address] [place] [address], [address], [place], [place], [id number], [place]. tel:[phone] Referring Provider: Jair Peters, [address] [place] [address], suite [facility], [place], [address]. tel:[phone] [facility], [address] [place] [address] Dr Briggs 1000Su[place], [id number], [place] tel:[phone] [place] Varicose veins of right lower extremity with other complications 5 Jose DARLING RVT, RPVI Robert. [address] [place] [address], [address], [place], [id number], [place]. tel:[phone] Referring Provider: Jair Peters, [address], [address], [place], [address]. tel:[phone] [facility], [address] [place] [address] Dr Briggs 1000[address] 1000[place], [id number], [place] tel:[phone] CV - [facility] No Information 5 Jose DARLING RVT, RICCARDO Santos. [address] [place] [address] 302, [place], [id number], [place]. tel:[phone] Office/Oupt E&M New Pt 30 Mins- CT & [place] [facility], [address] [place] [address] Dr Briggs 1000[address] 1000[place], [id number], [place] tel:[phone] [facility] Chronic venous hypertension (idiopathic) without complications of bilateral lower extremityRestl ess legs syndromeEssent ial (primary) hypertensionVe nous insufficiency (chronic) (peripheral)Cr amp and spasmLocalized edema 5 Jose DARLING RVT, RICCARDO Santos. [address] [place] [address], [place], [id number], [place]. tel:[phone] [facility], [address] [place] [address] Dr Briggs 1000[address] 1000[place], [id number], [place] tel:[phone] [facility] hypertension (idiopathic) with other complications of bilateral lower extremity 5 Jose DARLING RVT, RICCARDO Santos. [facility]0 [place] [address], [place], [id number], [place]. tel:[phone] Referring Provider: Jair Peters, [address], [address], [place], [address]. tel:[phone] Family History Family Member Type Diagnosis Age At Onset No Information Payers Payer name Insurance type Covered green party ID Rosalio deng(s) [facility] [id number] Social History Type Description Quantity Date Captured [...] Assessmen t No Information Instructions Date Instruction Amita sanon Pre and post instruc tions reviewed and [...]
--- OUTSIDE RECORDS SUMMARY | 2025-06-01 01:42 | XMS_ITS | Clinical Summary ---
Author Organization [employer] Address [address] [facility] 7t [place] [address] Care Team Providers Care Business Objects Developer Name Role Phone Unavailable Primary Care [...]
--- OUTSIDE RECORDS SUMMARY | 2025-06-01 01:43 | XMS_ITS | Patient Health Record ---
Author Organization [facility] Address [address] [place] [address] Care Team Providers Care Metal Die Finisher Name Role Phone Jair Hammond Primary Care Provider UnavailLary Carrion Unavailable [phone] Allergies No Known Allergies Results Component Value Reference Range Notes Pathology (Not yet reviewed by provider) Interpretation: Performing Lab:[facility], [address] [place] [phone] Notes/Report: Reason For Referral No Information Medications [...] Info Options Details Miscellaneous: Marital status: Occupation: wall worker--t ruckdriver Section Notes: Nonsmoker > 10 years; occ. a lcohol Nonsmoker > 10 years; occ. a lcohol Problems Problem Type SNOMED Code ICD Code Onset Dates Problem Status W/U Status Risk Notes Problem Screening for malignant neoplasm of colon (634109419) Encounter for screening for malignant neoplasm of colon (Z12.11) Active confirmed Problem Preprocedural examination (732357059737679) Preprocedural examination (Z01.818) Active confirmed Problem Family History of Cancer of Colon (Situation) (841716429) Family history of colon cancer (Z80.0) Active confirmed Vital Signs Temperature 97.7 degrees Fahrenheit 07/31/2024 Blood pressure diastolic 00 mm Hg 07/31/2024 Height 68 in 07/31/2024 Blood pressure systolic 000 mm Hg 07/31/2024 Weight 163 lbs 07/31/2024 BMI 24.78 kg/m2 07/31/2024 Encounters Encounter Location Date Provider Diagnosis [facility] [address] [place] [phone] 11/09/2024 Lary Buckner Colon cancer screeni ng Z12.11 ; Adenomatous polyp of cecum D12.0 ; Adenoma of transverse colon D12.3 and Diverticulosis of large intestine without perforation or abscess without bleeding K57.30 [facility] [address] [place] [phone] 07/31/2024 Lary Buckner Encounter for screen ing for malignant neoplasm of colon Z12.11 ; Preprocedural examination Z01.818 and Family history of colon cancer Z80.0 [facility] [address] [facility] [address] [place] [phone] 10/05/2024 Lary Buckner Assessments Encounter Date Diagnosis [...] Date [employer] [address] [address] [place] [address] [id number] LARY FARRIS Self - patient is the insured Medical (General) History Medical History History ICD Code Hypertension Denies [place],DM,CVA,Lung disease,renal dise ase Depression Negative screening colonoscopy in 7 Surgical History Surgery Date(Month/Year) Left knee arthroscopy 1990 Bilateral inguinal hernias as a child
--- OUTSIDE RECORDS SUMMARY | 2025-06-01 01:43 | XMS_ITS | Encounter Summary ---
Author Organization [employer] Address [address] [place] [address] Care Team Providers Care Transformation Architect Name Role Phone Unavailable Primary Care [...]
== END 2025-05-31 16:14 | disposition home or self-care (01) ==
LOC: HO.HMGAL 16:12
PROVIDERS: PCP Physician Assistant; Visit Provider Registered Nurse Emergency
DX: J30.89 Other allergic rhinitis (principal)
CPT/HCPCS: 95117; 95165